=== PATIENT | male | born 1940 | race Caucasian/White ===

== ENCOUNTER 2021-12-17 03:34 | Inpatient (IN) | payer MEDICARE, OTHER ==
[~2021-12-17] VITALS: Ht 180.3 cm; Wt 104.7 kg
[~2021-12-17 03:34] MED LIST: ACET10DR2 OT; ASPI-482 PO; CYAN500T40 SL; DICL100G54 TP; DOCU-109 PO; DONE10TA61 PO; DULO60CA7 PO; FERR325T72 PO; FLUT15.845 NS; HYDR-2761 PO; INSU100I13 SQ; LOPE-101 PO; LORA0.5T96 PO; LORA10TA3 PO; MAGN24003 PO; MEMA10TA PO; METF-550 PO; METF-551 PO; MULT-671 PO; NORT75CA PO; ONDA4TAB10 SL; PECT2.8L3 MM; POTA8TAB46 PO; PRAV40TA2 PO; PREG50CA91 PO; PROP225C2 PO; SENN1TAB62 PO; TRAZ-118 PO
[2021-12-17 07:00] VITALS: BP 138/63
[2021-12-17] MEDS ORDERED: DULO40CA2 PO (07:47)
[2021-12-17] MEDS ORDERED: NORT25CA PO (07:56)
[2021-12-17] MEDS ORDERED: INSU100V8 SQ (07:56)
[2021-12-17] MEDS ORDERED: CYAN100031 PO (07:56)
[2021-12-17] MEDS ORDERED: PREG-9 PO (07:56)
[2021-12-17] MEDS ORDERED: INFLUENZA VAX SCREEN BY RX. MC PRN (08:00)
[2021-12-17] MEDS ORDERED: AMLO-186 PO (08:07)
[2021-12-17] MEDS ORDERED: TRAZ-118 PO (08:07)
[2021-12-17] MEDS ORDERED: POLY500P14 MC (08:07)
[2021-12-17] MEDS ORDERED: DIVA250T14 PO (08:07)
[2021-12-17] MEDS ORDERED: BACL10TA PO (08:07)
[2021-12-17] MEDS ORDERED: HYDR-2761 PO (08:07)
[2021-12-17] MEDS ORDERED: LORA0.5T96 PO (08:07)
[2021-12-17] MEDS ORDERED: NITR0.4T2 SL (08:07)
[2021-12-17] MEDS ORDERED: APIX5TAB PO (08:14)
[2021-12-17] MEDS ORDERED: METO25TA2 PO (08:14)
[2021-12-17] MEDS ORDERED: ACET325T21 PO (08:14)
[2021-12-17] MEDS ORDERED: HYDR-2868 PO (08:14)
[2021-12-17] MEDS ORDERED: POTA15TA26 PO (08:18)
[2021-12-17] MEDS ORDERED: ACETAMINOPHEN 325 MG TABLET. PO PRN ×2 (08:30→10:15)
[2021-12-17] MEDS ORDERED: IV DEXTROSE 5% 250 ML BAG. IV PRN (08:30)
[2021-12-17] MEDS ORDERED: DEXTROSE 50% 25 GM / 50ML DISP.SYRIN. IV PRN (08:30)
[2021-12-17] MEDS ORDERED: NITROGLYCERIN SUBLINGUAL 0.4 MG BOTTLE OF 25. SL PRN (10:15)
[2021-12-17] MEDS ORDERED: HYDROcodone/APAP 5/325MG 1 TAB TABLET PO PRN (10:15)
[2021-12-17] MEDS ORDERED: PIP/TAZO PER PHARMACY MC PRN (10:15)
[2021-12-17] MEDS ORDERED: POLYETHYLENE GLYCOL 3350 17 GM PACKET. PO PRN (10:15)
[2021-12-17] MEDS ORDERED: LOPERAMIDE 2 MG CAPSULE PO SCH (10:15)
[2021-12-17] MEDS ORDERED: ONDANSETRON ODT 4 MG TAB.RAPDIS. PO PRN (10:15)
[2021-12-17] MEDS ORDERED: DULO30CA44 PO (10:50)
[2021-12-17] MEDS ORDERED: POLY17PO29 PO (10:50)
[2021-12-17] MEDS ORDERED: METF10007 PO (10:50)
[2021-12-17] MEDS ORDERED: CHOL5000 PO (10:50)
[2021-12-17] MEDS ORDERED: DIVA-53 PO (10:50)
[2021-12-17] MEDS ORDERED: INSU100I17 SQ (10:50)
[2021-12-17] MEDS ORDERED: POTA10TA12 PO (10:50)
[2021-12-17 10:55] VITALS: BP 121/58
[2021-12-17] MEDS: SENNOSIDES/DOCUSATE 8.6/50MG TABLET. PO PRN (10:55)
[2021-12-17] MEDS: APIXABAN 5 MG TABLET. PO SCH ×2 (10:55→21:32)
[2021-12-17] MEDS: DOCUSATE SODIUM 100 MG CAPSULE. PO SCH ×2 (10:55→21:31)
--- NOTE | 2021-12-17 10:55 | HP ---
DATE OF SERVICE: 12/17/2021 ADMIT DATE: 12/17/2021 HISTORY OF PRESENT ILLNESS: The patient is an 81-year-old male patient, a resident at [facility] and [facility], who was brought to the Emergency Room of [facility] with mechanical fall. He apparently fell hitting his head and presented with a complaint of head, pelvic pain and low back pain. He did hit his head in the fall, but no loss of consciousness. Nurses were in the next room and heard him fall. He apparently was also running a temperature over the last couple of days. There is no history of travel or recent ill contact. He has been a resident at [facility] and [facility] since 05/03/2013. The patient was evaluated in the Emergency Room of [facility] and has had lab work and imaging studies. His lab work showed he has leukocytosis. His chemistry showed also that his CK was high at 1085. His first troponin was high at 476. His beta natriuretic peptide was 1714. His prothrombin time and INR slightly elevated, APTT normal at 31. D-dimer was high at 1.15. His urinalysis showed the urine was cloudy with a pH of 5.5, specific gravity 1.030. There is small amount of protein, negative for glucose, trace of ketones, large amount of blood, positive for nitrite with moderate amount of leukocyte esterase, 5-10 rbc's, too numerous to count wbc's and many bacteria. His toxic screen was negative and his influenza A and B as well as coronavirus by rapid testing was negative, has extensive imaging studies done at [facility] Emergency Room including a chest x-ray that showed no confluent infiltrates. No pneumothorax or effusion. The heart size is not enlarged. The right distal clavicle has been partially resected. There are atherosclerotic calcification of the aorta. CT scan of the head and cervical spine showed no intracranial hemorrhage or abnormal extraaxial fluid collection. CT scan of cervical spine showed that the alignment is normal. There is no apparent loss of vertebral body heights or prevertebral soft tissue swelling, no fracture line is seen and CT scan of the lumbar spine also showed the alignment is normal. There are no apparent loss of vertebral body heights or other evidence of fracture. CT scan of the pelvis shows no fracture or dislocation seen. There are no apparent destructive process. Mild arthritic changes are present in both hip joints. No soft tissue hematoma is seen. The patient was transferred to [facility] as he has elevated troponin of 475, elevated D-dimer, UTI and left basilar pneumonia as well as leukocytosis. PAST MEDICAL HISTORY: Significant for type 2 diabetes mellitus, hypertension, hyperlipidemia, severe chronic back pain and chronic opioid-induced constipation. PAST SURGICAL HISTORY: Significant for right distal clavicular resection. ALLERGIES: He has no known drug allergies. FAMILY HISTORY: Noncontributory. SOCIAL HISTORY: He has been a resident at [facility] and [facility]. He has 1 son who lives in [place]. He used to chew tobacco and drink alcohol and worked as a satellite tv installer. REVIEW OF SYSTEMS: As per history of present illness. MEDICATIONS: He is currently on the following medications: He is on loratadine 10 mg once a day, Aricept 10 mg daily. He is on baclofen 10 mg 3 times a day, apixaban 5 mg twice a day, propafenone 225 mg twice a day, hydralazine 25 mg every 8 hours, nitroglycerin 0.4 mg sublingually every 5 minutes x 3, metoprolol succinate 50 mg once a day, amlodipine 5 mg once a day, hydrocodone/APAP 5/325 one tablet every 4 hours, acetaminophen 650 mg every 4 hours, divalproex sodium 250 mg twice a day, pregabalin 75 mg twice a day, duloxetine 90 mg daily, nortriptyline 50 mg at bedtime, trazodone 75 mg at bedtime, lorazepam 0.5 mg at bedtime, Namenda 10 mg daily, potassium chloride 10 mEq once a day. He is also on glucose 37.5 grams p.o. daily p.r.n. for hypoglycemia. He is also on natural balance tears eyedrops 1 drop to both eyes 4 times a day, glycerin-propylene glycol lubricant eye drops 1 mL to both eyes at bedtime. He is on polyethylene glycol 17 grams daily, Senna-S 2 tablets in the morning, metformin 1000 mg twice a day. He is also on NovoLog insulin 5 units 3 times a day before meals and Lantus insulin 15 units at bedtime. He is on a Glucagon 1 mg intramuscular as needed for hypoglycemia, cyanocobalamin 1000 mcg tablet once a day, cholecalciferol, vitamin D3 50,000 units once a week, multivitamin with mineral 1 tablet once a day. PHYSICAL EXAMINATION: GENERAL: On arrival to the Emergency Room, the patient was slightly tachypneic, but there was no pallor, jaundice, cyanosis or thyromegaly. No jugular venous distention. No limb edema. VITAL SIGNS: His heart rate was 86, blood pressure is 152/66, temperature 103.2, respiratory rate was 24 and oxygen saturation was 91% on room air. HEAD, EYES, EARS, NOSE, AND THROAT: Normocephalic, atraumatic. NECK: Supple. HEART: Showed normal first and second heart sounds. No gallop, rub or murmur. CHEST: Clear to auscultation, no crepitation or rhonchi. ABDOMEN: Distended, soft, nontender. NEUROLOGIC: He was awake, alert, responding appropriately at times. All his cranial nerves intact. He moves extremities without difficulty, although he is mostly bedbound, wheelchair bound. LABORATORY DATA: His lab work showed a white cell count of 14,400, hemoglobin 12, hematocrit 36, MCV 87 and platelet count of 183,000 with normal manual differential. His chemistry showed a serum sodium 134, potassium 4.4, chloride 98, bicarbonate 26, anion gap of 10, BUN 22, creatinine 1.5. Estimated GFR was 45 mL per minute. His glucose was 225, calcium was 8.7, magnesium was 1.4. Total bilirubin, AST, ALT, alkaline phosphatase were normal. CK was high at 1083. Troponin I high sensitivity was high also at 476 and beta natriuretic peptide was 1700. Total protein was 6.9, albumin was 3.5. His prothrombin time and INR slightly elevated, APTT was normal and D-dimer was high at 1.15. Urinalysis showed the urine was teresa, cloudy with a pH of 5.5, specific gravity 1.030. There is a small amount of protein. The urine was negative for glucose, trace of ketones, large amount of blood, positive for nitrite and there is moderate amount of leukocyte esterase, 6-10 rbc's, too numerous to count wbc's and many bacteria. Toxic screen was negative and influenza A, B as well as COVID-19 by rapid testing was negative. ASSESSMENT AND PLAN: In summary, this is an 81-year-old male patient who was seen in the Emergency Room with a history of fall, extensive imaging showed no evidence of any fracture; however, he was found to have leukocytosis and possible urinary tract infection and perhaps left lower lobe pneumonia and the patient was treated with ciprofloxacin as well as ceftriaxone and was continued on his apixaban and was transferred to [facility]. I will reconcile all his medications. We will do two more sets of cardiac enzyme and continue with IV antibiotic. We will consult the Cardiology team. JN DR: Jessica TID: [id number]
[2021-12-17] MEDS: BACLOFEN 10 MG TABLET. PO SCH ×3 (10:56→21:27)
[2021-12-17] MEDS: PRENATAL MULTIVITAMIN TABLET. PO SCH (10:56)
[2021-12-17] MEDS: PREGABALIN 75 MG CAPSULE PO SCH ×2 (10:57→21:33)
[2021-12-17] MEDS ORDERED: DICLOFENAC SODIUM 1% TOPICAL GEL 100GM TUBE. TP SCH (11:00)
[2021-12-17] MEDS ORDERED: ASPIRIN ENTERIC COATED 81 MG TABLET.DR. PO SCH (11:00)
[2021-12-17] MEDS ORDERED: METOPROLOL SUCC 24HR ER 25 MG TAB.ER.24H. PO SCH (11:00)
[2021-12-17] MEDS ORDERED: DULoxetine HCL 30 MG CAPSULE.DR PO SCH (11:00)
[2021-12-17] MEDS ORDERED: FERROUS SULFATE 325 MG TABLET. PO SCH (11:00)
[2021-12-17] MEDS ORDERED: MEMANTINE 10 MG TABLET. PO SCH (11:00)
[2021-12-17] MEDS: MEMANTINE 10 MG TABLET. PO SCH (11:00)
[2021-12-17 11:01] LABS: BASO # 0.1 x10^3/uL (0.0-0.2); BASO % 0 % (0-3); CALCIUM 8.4 mg/dL (8.5-10.1); CREATININE 1.8 mg/dL (0.7-1.3); EOS % 0 % (0-3); GFR 36.5; HEMATOCRIT 35.9 % (39.0-53.0); HEMOGLOBIN 11.4 g/dL (13.0-17.5); LYMPH # 1.5 x10^3/uL (1.0-4.8); LYMPH % 10 % (24-48); MEAN CORPUSCULAR HEMOGLOBIN 27 pg (25-35); MEAN CORPUSCULAR HGB CONC 32 g/dL (31-37); MEAN CORPUSCULAR VOLUME 86 fL (79-100); MONO # 1.8 x10^3/uL (0.0-1.1); MONO % 12 % (0-9); NEUT # 11.1 x10^3/uL (1.8-7.7); NEUT % 77 % (31-73); PLATELET COUNT 171 x10^3/uL (140-400); POTASSIUM 4.5 mmol/L (3.5-5.1); RED CELL DISTRIBUTION WIDTH 13.9 % (11.5-14.5); WHITE BLOOD COUNT 14.4 x10^3/uL (4.0-11.0)
[2021-12-17 11:07] LABS: ALBUMIN 3.3 g/dL (3.4-5.0); ALBUMIN/GLOBULIN RATIO 0.9 (1.0-1.7); TOTAL BILIRUBIN 0.7 mg/dL (0.2-1.0); TOTAL PROTEIN 6.8 g/dL (6.4-8.2)
[2021-12-17 11:09] LABS: CHOLESTEROL/HDL RATIO 6.2
[2021-12-17] MEDS: METOPROLOL SUCC 24HR ER 50 MG TAB.ER.24H. PO SCH (11:29)
[2021-12-17] MEDS: DIVALPROEX SPRINKLES 125 MG CAPSULE. PO SCH ×2 (12:29→21:00)
[2021-12-17] MEDS: DULoxetine HCL 30 MG CAPSULE.DR PO SCH (12:29)
[2021-12-17] MEDS: FLUTICASONE 50MCG/NASAL SPRAY 16GM BOTTLE. NS SCH (12:29)
[2021-12-17] MEDS: PIPERACILLIN/TAZOBACTAM 3.375 GM in IV NORMAL SALINE 50ML 50 ML IV SCH ×3 (12:30→21:34)
[2021-12-17] MEDS: INSULIN LISPRO 300 UNITS/3 ML VIAL. SQ SCH ×2 (12:34→17:00)
[2021-12-17] MEDS: PROPAFENONE 150 MG TABLET. PO SCH ×2 (12:35→21:30)
[2021-12-17] MEDS: hydrALAZINE 25 MG TABLET PO SCH ×2 (14:00→21:00)
[2021-12-17 15:00] VITALS: BP 120/59
--- NOTE | 2021-12-17 16:12 | PDOC2 ---
CONSULT Date of Consult Date of Consult DATE: 12/17/21 TIME: 16:06 Reason for Consult Reason for Consult: Elevated troponin. Referring Physician Referring Physician: Dr. Ramsay Identification/Chief Complaint Chief Complaint Mechanical fall Source Source: Chart review, Patient History of Present Illness Reason for Visit: The patient is an 81-year-old long-term resident of a long term who had a unwitnessed mechanical fall at his long term. He reportedly had no loss of consciousness. He was transported to [facility] emergency room for evaluation. CT head scan showed no acute changes. A chest x-ray showed a left-sided pacemaker. Initial CK was elevated at 1085. BNP was mildly elevated at 1714. Troponins been 476 and 349. His EKG showed a sinus rhythm with minimal nonspecific ST-T wave changes. The patient is now more comfortable and resting in bed. He denies chest pain or shortness of breath. Past Medical History Cardiovascular: AFIB, CAD, HTN, Hyperlipidemia CENTRAL NERVOUS SYSTEM: Dementia GI: Constipation, GERD Psych: Anxiety, Depression Musculoskeletal: Osteoarthritis Renal/: Urinary Incontinence Endocrine: Diabetes Past Surgical History Past Surgical History: Pacemaker, Other (Right distal clavicular resection) Family History Family History: Hypertension, Other Social History Quit ALCOHOL: none Drugs: None Current Medications Current Medications Current Medications Info (FLU VACCINE SCREEN per RX) [phone] each 1X PRN MC SEE ADMIN INSTRUCT IONS; Start 12/17/21 at 08:00; Status UNV Insulin Human Lispro (HumaLOG) 0-7 UNITS TIDWMEALS SQ Last administered on 12/17/21at 12:34; Start 12/17/21 at 12:00 Dextrose (Dextrose 50%-Water Syringe) 12.5 gm PRN Q15MIN PRN IV SEE COMMENTS; Start 12/17/21 at 08:30 Dextrose (Iv Dextrose 5%) 250 ml PRN Q15MIN PRN IV SEE COMMENTS; Start 12/17/21 at 08:30 Acetaminophen (Tylenol) 650 mg PRN Q6HRS PRN PO MILD PAIN / TEMP > 100.3'F Last administered on 12/17/21at 10:58; Start 12/17/21 at 08:30 Acetaminophen (Tylenol) 325 mg PRN DAILY PRN PO pain or fever; Start 12/17/21 at 10:15; Status UNV Amlodipine Besylate (Norvasc) 5 mg DAILY PO Last administered on 12/17/21at 10:56; Start 12/17/21 at 11:00 Apixaban (Eliquis) 5 mg BID PO Last administered on 12/17/21at 10:55; Start 12/17/21 at 11:00 Aspirin (Ecotrin) 81 mg DAILY PO ; Start 12/17/21 at 11:00; Status Cancel Baclofen (Lioresal) 10 mg TID PO Last administered on 12/17/21at 12:29; Start 12/17/21 at 11:00 Diclofenac Sodium (Voltaren) 1 april Q6HRS TP ; Start 12/17/21 at 11:00; Status Cancel Divalproex Sodium (Depakote Er) 125 mg BID PO ; Start 12/17/21 at 21:00; Status Cancel Docusate Sodium (Colace) 100 mg BID PO Last administered on 12/17/21at 10:55; Start 12/17/21 at 11:00 Donepezil HCl (Aricept) 10 mg QHS PO ; Start 12/17/21 at 21:00 Ferrous Sulfate (Feosol) 325 mg TID PO ; Start 12/17/21 at 11:00; Status Cancel Hydralazine HCl (Apresoline) 25 mg TID PO ; Start 12/17/21 at 14:00 Acetaminophen/ Hydrocodone Bitart (Lortab 5/325) 1 tab PRN Q4HRS PRN PO PAIN Last administered on 12/17/21at 10:57; Start 12/17/21 at 10:15 Insulin Glargine (Lantus Syringe) 15 unit HS SQ ; Start 12/17/21 at 21:00 Loperamide HCl (Imodium) 2 mg Q4H PO ; Start 12/17/21 at 10:15; Status Cancel Lorazepam (Ativan) 0.5 mg HS PO ; Start 12/17/21 at 21:00 Memantine (Namenda) 10 mg BID PO ; Start 12/17/21 at 11:00; Stop 12/17/21 at 10:51; Status DC Metoprolol Succinate (Toprol Xl) 50 mg DAILY PO ; Start 12/17/21 at 11:00; Stop 12/17/21 at 11:18; Status DC Nitroglycerin (Nitrostat) 0.4 mg PRN Q5MIN PRN SL CHEST PAIN; Start 12/17/21 at 10:15 Nortriptyline HCl (Pamelor) 50 mg QHS PO ; Start 12/17/21 at 21:00 Ondansetron HCl (Zofran Odt) 4 mg Q4HRS PRN PO NAUSEA; Start 12/17/21 at 10:15 Pregabalin (Lyrica) 75 mg BID PO Last administered on 12/17/21at 10:57; Start 12/17/21 at 11:00 Senna/Docusate Sodium (Senna Plus) 1 tab BID PRN PO CONSTIPATION Last administered on 12/17/21at 10:55; Start 12/17/21 at 10:15 Trazodone HCl (Desyrel) 75 mg QHS PO ; Start 12/17/21 at 21:00 Cyanocobalamin (Vitamin B-12) 1,000 mcg DAILY PO ; Start 12/18/21 at 09:00 Duloxetine HCl (Cymbalta) 30 mg DAILY PO ; Start 12/17/21 at 11:00; Stop 12/17/21 at 10:57; Status DC Fluticasone Propionate (Flonase) 2 spray DAILY NS Last administered on 12/17/21at 12:29; Start 12/17/21 at 11:00 Metformin HCl (Glucophage) 1,000 mg BIDWMEALS PO ; Start 12/17/21 at 17:00 Multivit/ Folic Acid/Iron (Multivitamin ) 1 tab DAILY PO Last administered on 12/17/21at 10:56; Start 12/17/21 at 11:00 Polyethylene Glycol (miraLAX PACKET) 17 gm PRN DAILY PRN PO CONSTIPATION; Start 12/17/21 at 10:15 Potassium Chloride (Klor-Con) 20 meq DAILYWBKFT PO ; Start 12/18/21 at 08:00 Atorvastatin Calcium (Lipitor) 20 mg QHS PO ; Start 12/17/21 at 21:00 Propafenone HCl (Rythmol) 75 mg BID PO Last administered on 12/17/21at 12:35; Start 12/17/21 at 12:00 Piperacillin Sod/ Tazobactam Sod (Zosyn Per Pharmacy) 1 each PRN DAILY PRN MC SEE COMMENTS; Start 12/17/21 at 10:15 Memantine (Namenda) 10 mg DAILY PO Last administered on 12/17/21at 11:00; Start 12/17/21 at 11:00 Divalproex Sodium (Depakote Sprinkles) 125 mg BID PO Last administered on 12/17/21at 12:29; Start 12/17/21 at 11:00 Duloxetine HCl (Cymbalta) 90 mg DAILY PO Last administered on 12/17/21at 12:29; Start 12/17/21 at 12:00 Piperacillin Sod/ Tazobactam Sod 3.375 gm/Sodium Chloride 50 ml @ 100 mls/hr Q6HRS IV Last administered on 12/17/21at 12:30; Start 12/17/21 at 12:00 Metoprolol Succinate (Toprol Xl) 50 mg DAILY PO Last administered on 12/17/21at 11:29; Start 12/17/21 at 12:00 Active Scripts Active Reported Klor-Con 10 (Potassium Chloride) 10 Meq Tablet.er 10 Meq PO DAILY Novolog Flexpen (Insulin Aspart) 100 Unit/1 Ml Insuln.pen 8 Unit SQ TIDWMEALS Miralax (Polyethylene Glycol 3350) 17 Gm Powd.pack 1 Pkt PO DAILY Metformin Hcl 1,000 Mg Tablet 1,000 Mg PO BIDWMEALS Duloxetine Hcl 30 Mg Capsule.dr 90 Mg PO DAILY Divalproex Sodium 500 Mg Tablet.dr 250 Mg PO BID Vitamin D3 (Vitamin D) 125 Mcg Capsule 125 Mcg PO WEEKLY 5,000 UNITS = 125 MCG Hydralazine Hcl 25 Mg Tablet 1 Tab PO TID Acetaminophen 325 Mg Tablet 1 Tab PO PRN Q4HRS PRN 30 Days Eliquis (Apixaban) 5 Mg Tablet 5 Mg PO BID Toprol Xl (Metoprolol Succinate) 25 Mg Tab.er.24h 2 Tab PO DAILY 30 Days Nitrostat (Nitroglycerin) 0.4 Mg Tab.subl 0.4 Mg SL PRN Q5MIN PRN Amlodipine Besylate 5 Mg Tablet 5 Mg PO BID Baclofen 10 Mg Tablet 1 Tab PO TID Ativan (Lorazepam) 0.5 Mg Tablet 0.5 Mg PO HS Trazodone Hcl 50 Mg Tablet 1.5 Tab PO QHS Hydrocodone-Apap 5-325 (Hydrocodone Bit/Acetaminophen) 1 Tab Tablet 1 Tab PO PRN Q4-6HRS PRN Lyrica (Pregabalin) 75 Mg Capsule 1 Cap PO BID Lantus (Insulin Glargine,Hum.rec.anlog) 100 Unit/1 Ml Vial 20 Unit SQ HS B-12 (Cyanocobalamin (Vitamin B-12)) 1,000 Mcg Tablet.er 1 Tab PO DAILY 30 Days Nortriptyline Hcl 25 Mg Capsule 2 Cap PO QHS Senna Plus Tablet (Sennosides/Docusate Sodium) 1 Each Tablet 2 Each PO DAILY Rythmol Sr (Propafenone Hcl) 225 Mg Cap.er.12h 75 Mg PO BID Namenda (Memantine Hcl) 10 Mg Tablet 1 Tab PO DAILY Eqoig-Exagdhq-Qfiicrca Tablet (Multivit-Min/Iron Fum/Folic AC) 1 Each Tablet 1 Each PO DAILY Loratadine 10 Mg Tablet 1 Tab PO DAILY Fluticasone Propionate 15.8 Ml [place].susp 15.8 Ml NS DAILY Aricept (Donepezil Hcl) 10 Mg Tablet 1 Tab PO QHS Allergies Allergies: Coded Allergies: I S O L A T I O N *CONTACT* (Verified Allergy, Unknown, 11/15/16) mrsa No Known Medication Allergies (Verified Allergy, Unknown, 11/15/16) ROS General: YES: Fatigue Respiratory: YES: SOB with excertion Physical Exam Physical Exam Deferred secondary to awaiting Covid test results. Vitals VITALS Vital Signs Date Time Temp Pulse Resp B/P (MAP) Pulse Ox O2 Delivery O2 Flow Rate FiO2 12/17/21 15:00 99.2 63 18 120/59 (79) 97 Nasal Cannula 3.0 99.2 Labs Labs Laboratory Tests Test 12/17/21 07:52 12/17/21 10:36 12/17/21 11:38 Glucose (Fingerstick) 197 mg/dL (70-99) 201 mg/dL (70-99) White Blood Count 14.4 x10^3/uL (4.0-11.0) Red Blood Count 4.20 x10^6/uL (4.30-5.70) Hemoglobin 11.4 g/dL (13.0-17.5) Hematocrit 35.9 % (39.0-53.0) Mean Corpuscular Volume 86 fL (79-100) Mean Corpuscular Hemoglobin 27 pg (25-35) Mean Corpuscular Hemoglobin Concent 32 g/dL (31-37) Red Cell Distribution Width 13.9 % (11.5-14.5) Platelet Count 171 x10^3/uL (140-400) Neutrophils (%) (Auto) 77 % (31-73) Lymphocytes (%) (Auto) 10 % (24-48) Monocytes (%) (Auto) 12 % (0-9) Eosinophils (%) (Auto) 0 % (0-3) Basophils (%) (Auto) 0 % (0-3) Neutrophils # (Auto) 11.1 x10^3/uL (1.8-7.7) Lymphocytes # (Auto) 1.5 x10^3/uL (1.0-4.8) Monocytes # (Auto) 1.8 x10^3/uL (0.0-1.1) Eosinophils # (Auto) 0.0 x10^3/uL (0.0-0.7) Basophils # (Auto) 0.1 x10^3/uL (0.0-0.2) Sodium Level 138 mmol/L (136-145) Potassium Level 4.5 mmol/L (3.5-5.1) Chloride Level 99 mmol/L (98-107) Carbon Dioxide Level 28 mmol/L (21-32) Anion Gap 11 (6-14) Blood Urea Nitrogen 26 mg/dL (8-26) Creatinine 1.8 mg/dL (0.7-1.3) Estimated GFR (Cockcroft-Gault) 36.5 BUN/Creatinine Ratio 14 (6-20) Glucose Level 192 mg/dL (70-99) Calcium Level 8.4 mg/dL (8.5-10.1) Total Bilirubin 0.7 mg/dL (0.2-1.0) Aspartate Amino Transf (AST/SGOT) 31 U/L (15-37) Alanine Aminotransferase (ALT/SGPT) 22 U/L (16-63) Alkaline Phosphatase 49 U/L (46-116) Troponin I High Sensitivity 349 ng/L (4-75) Total Protein 6.8 g/dL (6.4-8.2) Albumin 3.3 g/dL (3.4-5.0) Albumin/Globulin Ratio 0.9 (1.0-1.7) Triglycerides Level 161 mg/dL (0-150) Cholesterol Level 186 mg/dL (0-200) LDL Cholesterol, Calculated 124 mg/dL (0-100) VLDL Cholesterol, Calculated 32 mg/dL (0-40) Non-HDL Cholesterol Calculated 156 mg/dL (0-129) HDL Cholesterol 30 mg/dL (40-60) Cholesterol/HDL Ratio 6.2 Laboratory Tests Test 12/17/21 07:52 12/17/21 10:36 12/17/21 11:38 Glucose (Fingerstick) 197 mg/dL (70-99) 201 mg/dL (70-99) White Blood Count 14.4 x10^3/uL (4.0-11.0) Red Blood Count 4.20 x10^6/uL (4.30-5.70) Hemoglobin 11.4 g/dL (13.0-17.5) Hematocrit 35.9 % (39.0-53.0) Mean Corpuscular Volume 86 fL (79-100) Mean Corpuscular Hemoglobin 27 pg (25-35) Mean Corpuscular Hemoglobin Concent 32 g/dL (31-37) Red Cell Distribution Width 13.9 % (11.5-14.5) Platelet Count 171 x10^3/uL (140-400) Neutrophils (%) (Auto) 77 % (31-73) Lymphocytes (%) (Auto) 10 % (24-48) Monocytes (%) (Auto) 12 % (0-9) Eosinophils (%) (Auto) 0 % (0-3) Basophils (%) (Auto) 0 % (0-3) Neutrophils # (Auto) 11.1 x10^3/uL (1.8-7.7) Lymphocytes # (Auto) 1.5 x10^3/uL (1.0-4.8) Monocytes # (Auto) 1.8 x10^3/uL (0.0-1.1) Eosinophils # (Auto) 0.0 x10^3/uL (0.0-0.7) Basophils # (Auto) 0.1 x10^3/uL (0.0-0.2) Sodium Level 138 mmol/L (136-145) Potassium Level 4.5 mmol/L (3.5-5.1) Chloride Level 99 mmol/L (98-107) Carbon Dioxide Level 28 mmol/L (21-32) Anion Gap 11 (6-14) Blood Urea Nitrogen 26 mg/dL (8-26) Creatinine 1.8 mg/dL (0.7-1.3) Estimated GFR (Cockcroft-Gault) 36.5 BUN/Creatinine Ratio 14 (6-20) Glucose Level 192 mg/dL (70-99) Calcium Level 8.4 mg/dL (8.5-10.1) Total Bilirubin 0.7 mg/dL (0.2-1.0) Aspartate Amino Transf (AST/SGOT) 31 U/L (15-37) Alanine Aminotransferase (ALT/SGPT) 22 U/L (16-63) Alkaline Phosphatase 49 U/L (46-116) Troponin I High Sensitivity 349 ng/L (4-75) Total Protein 6.8 g/dL (6.4-8.2) Albumin 3.3 g/dL (3.4-5.0) Albumin/Globulin Ratio 0.9 (1.0-1.7) Triglycerides Level 161 mg/dL (0-150) Cholesterol Level 186 mg/dL (0-200) LDL Cholesterol, Calculated 124 mg/dL (0-100) VLDL Cholesterol, Calculated 32 mg/dL (0-40) Non-HDL Cholesterol Calculated 156 mg/dL (0-129) HDL Cholesterol 30 mg/dL (40-60) Cholesterol/HDL Ratio 6.2 Images Images Chest x-ray and CT head scan as above with no acute changes. Assessment/Plan Assessment/Plan 1. Mechanical fall. Patient's work-up thus far has shown no acute changes on imaging. He is feeling better. No evidence of a significant arrhythmia. We will continue present treatments and monitor. 2. Elevated troponin at 476 and 349. No acute ischemic EKG changes. We will continue to monitor and complete rule out. We will check an echocardiogram tomorrow. 3. Pacemaker. Will attempt to find old records and interrogate. 4. Hypertension. Under reasonable control at this time and will continue to monitor. 5. History of hyperlipidemia. Will check lab. 6. Dementia. 7. Chronic back pain. 8. Diabetes mellitus. Continue present treatment as per the primary service. Thank you for allowing us to participate in the care of your pleasant patient. LIBERTAD RED MD 13, 2022 16:12
[2021-12-17] MEDS: metFORMIN 500 MG TABLET PO SCH (16:43)
[2021-12-17 19:00] VITALS: BP 107/44
[2021-12-17] MEDS ORDERED: DIVALPROEX EXTENDED RELEASE 250 MG TAB.ER.24H. PO SCH (21:00)
[2021-12-17] MEDS: IPRATRPIUM/ALBUTEROL 0.5/2.5MG 3 ML NEBU. NEB SCH (21:10)
[2021-12-17] MEDS: NORTRIPTYLINE 25 MG CAPSULE PO SCH (21:27)
[2021-12-17] MEDS: LORazepam 0.5 MG TABLET PO SCH (21:27)
[2021-12-17] MEDS: traZODone 50 MG TABLET. PO SCH (21:32)
[2021-12-17] MEDS: ATORVASTATIN CALCIUM 20 MG TABLET PO SCH (21:33)
[2021-12-17] MEDS: DONEPEZIL HCL 10 MG TABLET. PO SCH (21:33)
[2021-12-17 23:00] VITALS: BP 115/55
[2021-12-18] MEDS: INSULIN GLARGINE SYRINGE. SQ SCH ×2 (00:46→22:08)
[2021-12-18 03:00] VITALS: BP 114/58
[2021-12-18] MEDS: PIPERACILLIN/TAZOBACTAM 3.375 GM in IV NORMAL SALINE 50ML 50 ML IV SCH ×3 (05:57→22:19)
[2021-12-18 07:00] VITALS: BP 118/64
[2021-12-18] MEDS: metFORMIN 500 MG TABLET PO SCH ×2 (07:58→17:00)
[2021-12-18] MEDS: IPRATRPIUM/ALBUTEROL 0.5/2.5MG 3 ML NEBU. NEB SCH ×3 (08:00→16:24)
[2021-12-18] MEDS: INSULIN LISPRO 300 UNITS/3 ML VIAL. SQ SCH ×3 (08:00→17:28)
[2021-12-18 08:07] LABS: HEMATOCRIT 33.3 % (39.0-53.0); HEMOGLOBIN 10.8 g/dL (13.0-17.5); RED BLOOD COUNT 3.87 x10^6/uL (4.30-5.70); RED CELL DISTRIBUTION WIDTH 13.6 % (11.5-14.5); WHITE BLOOD COUNT 8.2 x10^3/uL (4.0-11.0)
[2021-12-18 08:31] LABS: ALBUMIN 2.8 g/dL (3.4-5.0); ALBUMIN/GLOBULIN RATIO 0.8 (1.0-1.7); CALCIUM 8.1 mg/dL (8.5-10.1); CREATININE 1.5 mg/dL (0.7-1.3); MAGNESIUM 1.8 mg/dL (1.8-2.4); TOTAL BILIRUBIN 0.4 mg/dL (0.2-1.0); TOTAL PROTEIN 6.2 g/dL (6.4-8.2)
[2021-12-18] MEDS: hydrALAZINE 25 MG TABLET PO SCH ×3 (09:00→22:02)
[2021-12-18] MEDS: DULoxetine HCL 30 MG CAPSULE.DR PO SCH (09:01)
[2021-12-18] MEDS: PROPAFENONE 150 MG TABLET. PO SCH ×2 (09:02→22:01)
[2021-12-18] MEDS: SENNOSIDES/DOCUSATE 8.6/50MG TABLET. PO PRN (09:02)
[2021-12-18] MEDS: CYANOCOBALAMIN (VITAMIN B-12) 1,000 MCG TABLET. PO SCH (09:02)
[2021-12-18] MEDS: METOPROLOL SUCC 24HR ER 50 MG TAB.ER.24H. PO SCH (09:03)
[2021-12-18] MEDS: APIXABAN 5 MG TABLET. PO SCH ×2 (09:03→22:00)
[2021-12-18] MEDS: PRENATAL MULTIVITAMIN TABLET. PO SCH (09:03)
[2021-12-18] MEDS: MEMANTINE 10 MG TABLET. PO SCH (09:03)
[2021-12-18] MEDS: DIVALPROEX SPRINKLES 125 MG CAPSULE. PO SCH ×2 (09:03→22:02)
[2021-12-18] MEDS: DOCUSATE SODIUM 100 MG CAPSULE. PO SCH ×2 (09:03→21:00)
[2021-12-18] MEDS: BACLOFEN 10 MG TABLET. PO SCH ×3 (09:03→21:59)
[2021-12-18] MEDS: PREGABALIN 75 MG CAPSULE PO SCH ×2 (09:04→22:02)
[2021-12-18] MEDS: POTASSIUM CHLORIDE 20 MEQ TABLET.ER. PO SCH (09:04)
[2021-12-18] MEDS: FLUTICASONE 50MCG/NASAL SPRAY 16GM BOTTLE. NS SCH (09:04)
[2021-12-18 11:00] VITALS: BP 119/54
--- NOTE | 2021-12-18 11:34 | PN ---
DATE: 12/18/2021 SUBJECTIVE: The patient is resting slightly propped up in bed, in no apparent respiratory distress. He is awake, alert. On questioning him, he denied any complaint, in particular, he denied any pain. Denied any chills, rigors or fever. His coronavirus by PCR was negative and his urine culture has grown Escherichia coli; however, the sensitivities still pending at the time of this dictation. He has 2 sets of cardiac enzyme. His first set of cardiac enzymes showed troponin to be 476 and his second troponin high sensitivity was down to 349. He was seen by the encephalographer who will schedule the echocardiogram that was not done yet. PHYSICAL EXAMINATION: GENERAL: When I saw him this morning, he looked well and was clearly in no apparent respiratory distress. He was pale, but no jaundice, cyanosis, no lymphadenopathy, no thyromegaly, no jugular venous distention, no lower limb edema. VITAL SIGNS: His heart rate this morning was 60, blood pressure was 118/64, temperature was 98.4, respiratory rate 20, and oxygen saturation was 98% ____ liters of oxygen. HEAD, EYES, EARS, NOSE, AND THROAT: Normocephalic and atraumatic. NECK: Supple. HEART: Showed normal first and second heart sounds. No gallop, rub or murmur. CHEST: Clear to auscultation, no crepitation or rhonchi. ABDOMEN: Distended, soft, nontender. NEUROLOGIC: He is definitely more awake, alert, responding appropriately. All cranial nerves intact. He moves upper extremities without difficulty. He is mostly bedbound. His intake and output incompletely recorded. LABORATORY DATA: As of this morning, his white cell count is down to 8200, hemoglobin 11, hematocrit 33, MCV 86 and platelet count of 159,000. His chemistry showed a serum sodium 139, potassium 4, chloride 102, bicarbonate 28, anion gap of 9, BUN 29, creatinine 1.5. Estimated GFR was 45 mL per minute. His glucose 96, calcium was 8.1, magnesium was 1.8. Total bilirubin, AST, ALT, alkaline phosphatase are all normal. His total protein was 6.2, albumin was 2.8. ASSESSMENT: 1. Mechanical fall with no evidence of any fracture or injury. 2. Urinary tract infection with growth of Escherichia coli. 3. Type 2 diabetes mellitus. 4. Hypertension, seems to be well controlled. 5. Hyperlipidemia. 6. Severe chronic back pain. 7. Chronic opioid-induced constipation. PLAN: To obviously continue with IV Zosyn. Continue with monitor his blood sugar and adjust insulin as needed. Continue with nebulized albuterol and Atrovent. Once we have the results of the sensitivity, we will switch him to oral antibiotic and he can probably be transferred back to [facility] and Re[facility] tomorrow. ANG DR: Jessica TID: [id number]
[2021-12-18 15:00] VITALS: BP 127/49
--- NOTE | 2021-12-18 16:18 | CARD ---
MR#: [id number] Date of Study: 12/18/2021 Ordering Physician: LIBERTAD RED, Referring Physician: LIBERTAD RED, Tech: Jakob Licona [facility] APPROVED REPORT EXAM: Two-dimensional and M-mode echocardiogram with Doppler and color Doppler. Other Information Quality : AverageHR: 60bpm Rhythm : NSR INDICATION Elevated Troponin Surgery/Intervention Pacemaker: RISK FACTORS Hypertension Hyperlipidemia 2D DIMENSIONS Left Atrium(2D)4.7 (1.6-4.0cm)IVSd1.2 (0.7-1.1cm) Aortic Root(2D)3.2 (2.0-3.7cm)LVDd4.9 (3.9-5.9cm) LVOT Diameter2.3 (1.8-2.4cm)PWd1.3 (0.7-1.1cm) LA Nxonwg44 (18-58mL)LVDs3.5 (2.5-4.0cm) FS (%) 62.2 %SV103.2 ml LVEF(%)90.7 (>50%) Aortic Valve AoV Peak Jose.134.4cm/sAoV VTI27.5cm AO Peak GR.7.2mmHgLVOT VTI 22.48cm AO Mean GR.4mmHg Mitral Valve MV E Srlswfhn67.4cm/sMV E Peak Gr.3mmHg MV DECEL [id number] A Pgeldojb51.2cm/s MV E Mean Gr.1mmHgE/A Ratio1.1 TDI Lateral E' P. V11.20cm/sMedial E' P. V8.50cm/s E/Lateral E'7.4E/Medial E'9.8 Pulmonary Valve PV Peak Usbhnkch78.9cm/s Tricuspid Valve TR P. Mtrlbnrs986pr/sTR Peak Gr.30mmHg Pulmonary Vein S1 Fuylacnt06.8cm/sS2 Kojfohoq67.93cm/s D2 Vebkcvvt27.9cm/s LEFT VENTRICLE The left ventricle is normal size. There is borderline to mild concentric left ventricular hypertroph y. The left ventricular systolic function is normal. The ejection fraction is 60%. There is normal LV segmental wall motion. No left ventricle thrombus noted on this study. There is no ventricular septa l defect visualized. There is no left ventricular aneurysm. There is no mass noted in the left ventri cesario. RIGHT VENTRICLE The right ventricle is normal size. There is normal right ventricular wall thickness. The right ventr icular systolic function is normal. Pacemaker lead noted in the RV. ATRIA The left atrium is mildly dilated. The right atrium size is normal. The interatrial septum is intact with no evidence for an atrial septal defect or patent foramen ovale as noted on 2-D or Doppler imagi ng. AORTIC VALVE The aortic valve is normal in structure and function. Doppler and Color Flow revealed no significant aortic regurgitation. There is no significant aortic valvular stenosis. There is no aortic valvular v egetation. MITRAL VALVE The mitral valve is normal in structure and function. There is no evidence of mitral valve prolapse. There is no mitral valve stenosis. Doppler and Color-flow revealed trace to mild mitral regurgitation . TRICUSPID VALVE The tricuspid valve is normal in structure and function. Doppler and Color Flow revealed mild tricusp id valve regurgitation. The PA pressure was estimated at 40 mmHg. There is no tricuspid valve prolaps e or vegetation. There is no tricuspid valve stenosis. PULMONIC VALVE The pulmonary valve is normal in structure and function. Doppler and Color Flow revealed no pulmonic valvular regurgitation. There is no pulmonic valvular stenosis. GREAT VESSELS The aortic root is normal in size. The ascending aorta is normal in size. The pulmonary artery is nor mal. The IVC is normal in size and collapses >50% with inspiration. PERICARDIAL EFFUSION There is no pleural effusion. There is no evidence of significant pericardial effusion. Critical Notification Critical Value: No <Conclusion> Technically difficult study. The left ventricular systolic function is normal. The ejection fraction is 60%. There is normal LV segmental wall motion. Pacer wire noted RA/RV. Trace to mild mitral regurgitation. Mild tricuspid valve regurgitation. The PA pressure was estimated at 40 mmHg. There is no evidence of significant pericardial effusion. Signed by : Alvin Gonzalez, Electronically Approved : 12/18/2021 16:18:35
[2021-12-18] MEDS ORDERED: SENNOSIDES/DOCUSATE 8.6/50MG TABLET. PO PRN (17:00)
--- NOTE | 2021-12-18 17:52 | PDOC ---
PROGRESS NOTES Date of Service DATE: 12/18/21 TIME: 17:50 Subjective Subjective Patient seen and examined Objective Objective Vital Signs Date Time Temp Pulse Resp B/P (MAP) Pulse Ox O2 Delivery O2 Flow Rate FiO2 12/18/21 16:25 92 Room Air 12/18/21 15:00 98.0 60 20 127/49 (75) 98.0 12/18/21 07:00 1.5 Intake and Output 12/18/21 07:00 Intake Total 980 ml Balance 980 ml Intake Oral 880 ml IV Total 100 ml # Voids 4 Physical Exam Abdomen: Normal bowel sounds Heart: Regular rate General: No acute distress Lungs: Clear to auscultation Assessment Assessment 1. Mechanical fall. Patient's work-up thus far has shown no acute changes on imaging. He is feeling better. No evidence of a significant arrhythmia. We will continue present treatments and monitor. 2. Elevated troponin at 476 and 349. No acute ischemic EKG changes. Echocardiogram shows normal LV systolic function with trace mitral gravitation and trace tricuspid regurgitation. 3. Pacemaker. Will attempt to find old records and interrogate. 4. Hypertension. Under reasonable control at this time and will continue to monitor. 5. History of hyperlipidemia. 6. Dementia. 7. Chronic back pain. 8. Diabetes mellitus. Continue present treatment as per the primary service. Comment Review of Relevant I have reviewed the following items hardik (where applicable) has been applied. Labs Laboratory Tests Test 12/17/21 07:52 12/17/21 10:36 12/17/21 11:38 12/17/21 16:34 Glucose (Fingerstick) 197 mg/dL (70-99) 201 mg/dL (70-99) 168 mg/dL (70-99) White Blood Count 14.4 x10^3/uL (4.0-11.0) Red Blood Count 4.20 x10^6/uL (4.30-5.70) Hemoglobin 11.4 g/dL (13.0-17.5) Hematocrit 35.9 % (39.0-53.0) Mean Corpuscular Volume 86 fL (79-100) Mean Corpuscular Hemoglobin 27 pg (25-35) Mean Corpuscular Hemoglobin Concent 32 g/dL (31-37) Red Cell Distribution Width 13.9 % (11.5-14.5) Platelet Count 171 x10^3/uL (140-400) Neutrophils (%) (Auto) 77 % (31-73) Lymphocytes (%) (Auto) 10 % (24-48) Monocytes (%) (Auto) 12 % (0-9) Eosinophils (%) (Auto) 0 % (0-3) Basophils (%) (Auto) 0 % (0-3) Neutrophils # (Auto) 11.1 x10^3/uL (1.8-7.7) Lymphocytes # (Auto) 1.5 x10^3/uL (1.0-4.8) Monocytes # (Auto) 1.8 x10^3/uL (0.0-1.1) Eosinophils # (Auto) 0.0 x10^3/uL (0.0-0.7) Basophils # (Auto) 0.1 x10^3/uL (0.0-0.2) Sodium Level 138 mmol/L (136-145) Potassium Level 4.5 mmol/L (3.5-5.1) Chloride Level 99 mmol/L (98-107) Carbon Dioxide Level 28 mmol/L (21-32) Anion Gap 11 (6-14) Blood Urea Nitrogen 26 mg/dL (8-26) Creatinine 1.8 mg/dL (0.7-1.3) Estimated GFR (Cockcroft-Gault) 36.5 BUN/Creatinine Ratio 14 (6-20) Glucose Level 192 mg/dL (70-99) Calcium Level 8.4 mg/dL (8.5-10.1) Total Bilirubin 0.7 mg/dL (0.2-1.0) Aspartate Amino Transf (AST/SGOT) 31 U/L (15-37) Alanine Aminotransferase (ALT/SGPT) 22 U/L (16-63) Alkaline Phosphatase 49 U/L (46-116) Troponin I High Sensitivity 349 ng/L (4-75) Total Protein 6.8 g/dL (6.4-8.2) Albumin 3.3 g/dL (3.4-5.0) Albumin/Globulin Ratio 0.9 (1.0-1.7) Triglycerides Level 161 mg/dL (0-150) Cholesterol Level 186 mg/dL (0-200) LDL Cholesterol, Calculated 124 mg/dL (0-100) VLDL Cholesterol, Calculated 32 mg/dL (0-40) Non-HDL Cholesterol Calculated 156 mg/dL (0-129) HDL Cholesterol 30 mg/dL (40-60) Cholesterol/HDL Ratio 6.2 Test 12/17/21 21:53 12/18/21 07:47 12/18/21 07:54 12/18/21 17:18 Glucose (Fingerstick) 164 mg/dL (70-99) 169 mg/dL (70-99) 237 mg/dL (70-99) White Blood Count 8.2 x10^3/uL (4.0-11.0) Red Blood Count 3.87 x10^6/uL (4.30-5.70) Hemoglobin 10.8 g/dL (13.0-17.5) Hematocrit 33.3 % (39.0-53.0) Mean Corpuscular Volume 86 fL (79-100) Mean Corpuscular Hemoglobin 28 pg (25-35) Mean Corpuscular Hemoglobin Concent 32 g/dL (31-37) Red Cell Distribution Width 13.6 % (11.5-14.5) Platelet Count 159 x10^3/uL (140-400) Sodium Level 139 mmol/L (136-145) Potassium Level 4.0 mmol/L (3.5-5.1) Chloride Level 102 mmol/L (98-107) Carbon Dioxide Level 28 mmol/L (21-32) Anion Gap 9 (6-14) Blood Urea Nitrogen 29 mg/dL (8-26) Creatinine 1.5 mg/dL (0.7-1.3) Estimated GFR (Cockcroft-Gault) 45.0 BUN/Creatinine Ratio 19 (6-20) Glucose Level 168 mg/dL (70-99) Calcium Level 8.1 mg/dL (8.5-10.1) Magnesium Level 1.8 mg/dL (1.8-2.4) Total Bilirubin 0.4 mg/dL (0.2-1.0) Aspartate Amino Transf (AST/SGOT) 28 U/L (15-37) Alanine Aminotransferase (ALT/SGPT) 17 U/L (16-63) Alkaline Phosphatase 45 U/L (46-116) Total Protein 6.2 g/dL (6.4-8.2) Albumin 2.8 g/dL (3.4-5.0) Albumin/Globulin Ratio 0.8 (1.0-1.7) Laboratory Tests Test 12/17/21 21:53 12/18/21 07:47 12/18/21 07:54 12/18/21 17:18 Glucose (Fingerstick) 164 mg/dL (70-99) 169 mg/dL (70-99) 237 mg/dL (70-99) White Blood Count 8.2 x10^3/uL (4.0-11.0) Red Blood Count 3.87 x10^6/uL (4.30-5.70) Hemoglobin 10.8 g/dL (13.0-17.5) Hematocrit 33.3 % (39.0-53.0) Mean Corpuscular Volume 86 fL (79-100) Mean Corpuscular Hemoglobin 28 pg (25-35) Mean Corpuscular Hemoglobin Concent 32 g/dL (31-37) Red Cell Distribution Width 13.6 % (11.5-14.5) Platelet Count 159 x10^3/uL (140-400) Sodium Level 139 mmol/L (136-145) Potassium Level 4.0 mmol/L (3.5-5.1) Chloride Level 102 mmol/L (98-107) Carbon Dioxide Level 28 mmol/L (21-32) Anion Gap 9 (6-14) Blood Urea Nitrogen 29 mg/dL (8-26) Creatinine 1.5 mg/dL (0.7-1.3) Estimated GFR (Cockcroft-Gault) 45.0 BUN/Creatinine Ratio 19 (6-20) Glucose Level 168 mg/dL (70-99) Calcium Level 8.1 mg/dL (8.5-10.1) Magnesium Level 1.8 mg/dL (1.8-2.4) Total Bilirubin 0.4 mg/dL (0.2-1.0) Aspartate Amino Transf (AST/SGOT) 28 U/L (15-37) Alanine Aminotransferase (ALT/SGPT) 17 U/L (16-63) Alkaline Phosphatase 45 U/L (46-116) Total Protein 6.2 g/dL (6.4-8.2) Albumin 2.8 g/dL (3.4-5.0) Albumin/Globulin Ratio 0.8 (1.0-1.7) Medications Current Medications Info (FLU VACCINE SCREEN per RX) 9,677.02 each 1X PRN MC SEE ADMIN INSTRUCTIONS; Start 12/17/21 at 08:00; Status UNV Insulin Human Lispro (HumaLOG) 0-7 UNITS TIDWMEALS SQ Last administered on 12/18/21at 17:28; Start 12/17/21 at 12:00 Dextrose (Dextrose 50%-Water Syringe) 12.5 gm PRN Q15MIN PRN IV SEE COMMENTS; Start 12/17/21 at 08:30 Dextrose (Iv Dextrose 5%) 250 ml PRN Q15MIN PRN IV SEE COMMENTS; Start 12/17/21 at 08:30 Acetaminophen (Tylenol) 650 mg PRN Q6HRS PRN PO MILD PAIN / TEMP > 100.3'F Last administered on 12/17/21at 10:58; Start 12/17/21 at 08:30 Acetaminophen (Tylenol) 325 mg PRN DAILY PRN PO pain or fever; Start 12/17/21 at 10:15; Status UNV Amlodipine Besylate (Norvasc) 5 mg DAILY PO Last administered on 12/17/21at 10:56; Start 12/17/21 at 11:00 Apixaban (Eliquis) 5 mg BID PO Last administered on 12/18/21at 09:03; Start 12/17/21 at 11:00 Aspirin (Ecotrin) 81 mg DAILY PO ; Start 12/17/21 at 11:00; Status Cancel Baclofen (Lioresal) 10 mg TID PO Last administered on 12/18/21at 09:03; Start 12/17/21 at 11:00 Diclofenac Sodium (Voltaren) 1 april Q6HRS TP ; Start 12/17/21 at 11:00; Status Cancel Divalproex Sodium (Depakote Er) 125 mg BID PO ; Start 12/17/21 at 21:00; Status Cancel Docusate Sodium (Colace) 100 mg BID PO Last administered on 12/18/21at 09:03; Start 12/17/21 at 11:00 Donepezil HCl (Aricept) 10 mg QHS PO Last administered on 12/17/21at 21:33; Start 12/17/21 at 21:00 Ferrous Sulfate (Feosol) 325 mg TID PO ; Start 12/17/21 at 11:00; Status Cancel Hydralazine HCl (Apresoline) 25 mg TID PO Last administered on 12/17/21at 21:00; Start 12/17/21 at 14:00 Acetaminophen/ Hydrocodone Bitart (Lortab 5/325) 1 tab PRN Q4HRS PRN PO PAIN Last administered on 12/17/21at 10:57; Start 12/17/21 at 10:15 Insulin Glargine (Lantus Syringe) 15 unit HS SQ Last administered on 12/18/21at 00:46; Start 12/17/21 at 21:00 Loperamide HCl (Imodium) 2 mg Q4H PO ; Start 12/17/21 at 10:15; Status Cancel Lorazepam (Ativan) 0.5 mg HS PO Last administered on 12/17/21at 21:27; Start 12/17/21 at 21:00 Memantine (Namenda) 10 mg BID PO ; Start 12/17/21 at 11:00; Stop 12/17/21 at 10:51; Status DC Metoprolol Succinate (Toprol Xl) 50 mg DAILY PO ; Start 12/17/21 at 11:00; Stop 12/17/21 at 11:18; Status DC Nitroglycerin (Nitrostat) 0.4 mg PRN Q5MIN PRN SL CHEST PAIN; Start 12/17/21 at 10:15 Nortriptyline HCl (Pamelor) 50 mg QHS PO Last administered on 12/17/21at 21:27; Start 12/17/21 at 21:00 Ondansetron HCl (Zofran Odt) 4 mg Q4HRS PRN PO NAUSEA; Start 12/17/21 at 10:15 Pregabalin (Lyrica) 75 mg BID PO Last administered on 12/18/21at 09:04; Start 12/17/21 at 11:00 Senna/Docusate Sodium (Senna Plus) 1 tab BID PRN PO CONSTIPATION Last administered on 12/18/21at 09:02; Start 12/17/21 at 10:15; Stop 12/18/21 at 16:49; Status DC Trazodone HCl (Desyrel) 75 mg QHS PO Last administered on 12/17/21at 21:32; Start 12/17/21 at 21:00 Cyanocobalamin (Vitamin B-12) 1,000 mcg DAILY PO Last administered on 12/18/21 09:02; Start 12/18/21 at 09:00 Duloxetine HCl (Cymbalta) 30 mg DAILY PO ; Start 12/17/21 at 11:00; Stop 12/17/21 at 10:57; Status DC Fluticasone Propionate (Flonase) 2 spray DAILY NS Last administered on 12/18/21at 09:04; Start 12/17/21 at 11:00 Metformin HCl (Glucophage) 1,000 mg BIDWMEALS PO ; Start 12/17/21 at 17:00 Multivit/ Folic Acid/Iron (Multivitamin ) 1 tab DAILY PO Last administered on 12/18/21at 09:03; Start 12/17/21 at 11:00 Polyethylene Glycol (miraLAX PACKET) 17 gm PRN DAILY PRN PO CONSTIPATION, 1ST CHOICE; Start 12/17/21 at 10:15 Potassium Chloride (Klor-Con) 20 meq DAILYWBKFT PO Last administered on 12/18/21at 09:04; Start 12/18/21 at 08:00 Atorvastatin Calcium (Lipitor) 20 mg QHS PO Last administered on 12/17/21at 21:33; Start 12/17/21 at 21:00 Propafenone HCl (Rythmol) 75 mg BID PO Last administered on 12/18/21 09:02; S tart 12/17/21 at 12:00 Piperacillin Sod/ Tazobactam Sod (Zosyn Per Pharmacy) 1 each PRN DAILY PRN MC SEE COMMENTS; Start 12/17/21 at 10:15 Memantine (Namenda) 10 mg DAILY PO Last administered on 12/18/21 09:03; Start 12/17/21 at 11:00 Divalproex Sodium (Depakote Sprinkles) 125 mg BID PO Last administered on 12/18/21 09:03; Start 12/17/21 at 11:00 Duloxetine HCl (Cymbalta) 90 mg DAILY PO Last administered on 12/18/21at 09:01; Start 12/17/21 at 12:00 Piperacillin Sod/ Tazobactam Sod 3.375 gm/Sodium Chloride 50 ml @ 100 mls/hr Q6HRS IV Last administered on 12/18/21at 12:01; Start 12/17/21 at 12:00 Metoprolol Succinate (Toprol Xl) 50 mg DAILY PO Last administered on 12/18/21at 09:03; Start 12/17/21 at 12:00 Albuterol/ Ipratropium (Duoneb) 3 ml RTQID NEB Last administered on 12/18/21at 16:24; Start 12/17/21 at 20:00 Lactobacillus Rhamnosus (Culturelle) 1 cap BID PO ; Start 12/18/21 at 21:00 Senna/Docusate Sodium (Senna Plus) 1 tab PRN BID PRN PO CONSTIPATION, 2ND CHOICE; Start 12/18/21 at 17:00 Active Scripts Active Reported Klor-Con 10 (Potassium Chloride) 10 Meq Tablet.er 10 Meq PO DAILY Novolog Flexpen (Insulin Aspart) 100 Unit/1 Ml Insuln.pen 8 Unit SQ TIDWMEALS Miralax (Polyethylene Glycol 3350) 17 Gm Powd.pack 1 Pkt PO DAILY Metformin Hcl 1,000 Mg Tablet 1,000 Mg PO BIDWMEALS Duloxetine Hcl 30 Mg Capsule.dr 90 Mg PO DAILY Divalproex Sodium 500 Mg Tablet.dr 250 Mg PO BID Vitamin D3 (Vitamin D) 125 Mcg Capsule 125 Mcg PO WEEKLY 5,000 UNITS = 125 MCG Hydralazine Hcl 25 Mg Tablet 1 Tab PO TID Acetaminophen 325 Mg Tablet 1 Tab PO PRN Q4HRS PRN 30 Days Eliquis (Apixaban) 5 Mg Tablet 5 Mg PO BID Toprol Xl (Metoprolol Succinate) 25 Mg Tab.er.24h 2 Tab PO DAILY 30 Days Nitrostat (Nitroglycerin) 0.4 Mg Tab.subl 0.4 Mg SL PRN Q5MIN PRN Amlodipine Besylate 5 Mg Tablet 5 Mg PO BID Baclofen 10 Mg Tablet 1 Tab PO TID Ativan (Lorazepam) 0.5 Mg Tablet 0.5 Mg PO HS Trazodone Hcl 50 Mg Tablet 1.5 Tab PO QHS Hydrocodone-Apap 5-325 (Hydrocodone Bit/Acetaminophen) 1 Tab Tablet 1 Tab PO PRN Q4-6HRS PRN Lyrica (Pregabalin) 75 Mg Capsule 1 Cap PO BID Lantus (Insulin Glargine,Hum.rec.anlog) 100 Unit/1 Ml Vial 20 Unit SQ HS B-12 (Cyanocobalamin (Vitamin B-12)) 1,000 Mcg Tablet.er 1 Tab PO DAILY 30 Days Nortriptyline Hcl 25 Mg Capsule 2 Cap PO QHS Senna Plus Tablet (Sennosides/Docusate Sodium) 1 Each Tablet 2 Each PO DAILY Rythmol Sr (Propafenone Hcl) 225 Mg Cap.er.12h 75 Mg PO BID Namenda (Memantine Hcl) 10 Mg Tablet 1 Tab PO DAILY Jpcdl-Nqqwqou-Bvbjyybj Tablet (Multivit-Min/Iron Fum/Folic AC) 1 Each Tablet 1 Each PO DAILY Loratadine 10 Mg Tablet 1 Tab PO DAILY Fluticasone Propionate 15.8 Ml Cerrillos.susp 15.8 Ml NS DAILY Aricept (Donepezil Hcl) 10 Mg Tablet 1 Tab PO QHS Vitals/I & O Vital Sign - Last 24 Hours 12/17/21 12/17/21 12/17/21 12/17/21 19:00 20:00 21:00 21:30 Temp 97.7 97.7 Pulse 63 65 62 Resp 20 B/P (MAP) 107/44 (65) 123/64 109/44 Pulse Ox 98 O2 Delivery Room Air Nasal Cannula O2 Flow Rate 6.0 12/17/21 12/18/21 12/18/21 12/18/21 23:00 03:00 07:00 08:00 Temp 98.8 98.4 98.4 98.8 98.4 98.4 Pulse 62 60 60 Resp 20 20 20 B/P (MAP) 115/55 (75) 114/58 (76) 118/64 (82) Pulse Ox 97 99 98 O2 Delivery Nasal Cannula Nasal Cannula Nasal Cannula Room Air O2 Flow Rate 3.0 3.0 1.5 12/18/21 12/18/21 12/18/21 12/18/21 09:00 09:00 09:02 09:03 Pulse 60 60 60 60 B/P (MAP) 118/64 118/64 118/64 118/64 12/18/21 12/18/21 12/18/21 12/18/21 11:00 11:44 14:00 15:00 Temp 98.6 98.0 98.6 98.0 Pulse 61 61 60 Resp 20 20 B/P (MAP) 119/54 (75) 119/54 127/49 (75) Pulse Ox 92 92 93 O2 Delivery Room Air Room Air Room Air 12/18/21 16:25 Pulse Ox 92 O2 Delivery Room Air Intake and Output 12/17/21 12/17/21 12/18/21 15:00 23:00 07:00 Intake Total 240 ml 540 ml 200 ml Balance 240 ml 540 ml 200 ml Justifications for Admission Other Justification LIBERTAD RED MD Dec 18, 2021 17:52
--- NOTE | 2021-12-18 17:55 | NUR ---
Patient was discharged and transported by [place] [facility] by wheelchair. IV and telemonitor discontinued by Khurram CASTELLANOS. All belongigns with patient. Addendum: 12/18/21 at 1928 by CIELO PEOPLES RN RN Wrong patient.
[2021-12-18 19:00] VITALS: BP 127/52
[2021-12-18] MEDS: traZODone 50 MG TABLET. PO SCH (21:59)
[2021-12-18] MEDS: LORazepam 0.5 MG TABLET PO SCH (22:00)
[2021-12-18] MEDS: ATORVASTATIN CALCIUM 20 MG TABLET PO SCH (22:00)
[2021-12-18] MEDS: DONEPEZIL HCL 10 MG TABLET. PO SCH (22:00)
[2021-12-18] MEDS: LACTOBACILLUS RHAMNOSUS GG 1 CAPSULE. PO SCH (22:00)
[2021-12-18] MEDS: NORTRIPTYLINE 25 MG CAPSULE PO SCH (22:03)
[2021-12-18 23:00] VITALS: BP 128/55
[2021-12-19] MEDS: PIPERACILLIN/TAZOBACTAM 3.375 GM in IV NORMAL SALINE 50ML 50 ML IV SCH ×5 (02:08→23:57)
[2021-12-19 03:25] VITALS: BP 133/52
[2021-12-19 03:39] LABS: HEMOGLOBIN 10.8 g/dL (13.0-17.5); RED BLOOD COUNT 3.84 x10^6/uL (4.30-5.70); RED CELL DISTRIBUTION WIDTH 13.8 % (11.5-14.5); WHITE BLOOD COUNT 5.3 x10^3/uL (4.0-11.0)
[2021-12-19 03:59] LABS: ALBUMIN 2.9 g/dL (3.4-5.0); ALBUMIN/GLOBULIN RATIO 0.7 (1.0-1.7); CALCIUM 8.7 mg/dL (8.5-10.1); CREATININE 1.4 mg/dL (0.7-1.3); GFR 48.8; POTASSIUM 3.9 mmol/L (3.5-5.1); TOTAL BILIRUBIN 0.4 mg/dL (0.2-1.0); TOTAL PROTEIN 7.1 g/dL (6.4-8.2)
[2021-12-19 07:00] VITALS: BP 139/59
[2021-12-19] MEDS: IPRATRPIUM/ALBUTEROL 0.5/2.5MG 3 ML NEBU. NEB SCH ×4 (08:00→20:00)
[2021-12-19] MEDS: DULoxetine HCL 30 MG CAPSULE.DR PO SCH (08:31)
[2021-12-19] MEDS: metFORMIN 500 MG TABLET PO SCH ×2 (08:32→17:11)
[2021-12-19] MEDS: DIVALPROEX SPRINKLES 125 MG CAPSULE. PO SCH ×2 (08:32→20:48)
[2021-12-19] MEDS: MEMANTINE 10 MG TABLET. PO SCH (08:32)
[2021-12-19] MEDS: LACTOBACILLUS RHAMNOSUS GG 1 CAPSULE. PO SCH ×2 (08:32→20:50)
[2021-12-19] MEDS: CYANOCOBALAMIN (VITAMIN B-12) 1,000 MCG TABLET. PO SCH (08:32)
[2021-12-19] MEDS: APIXABAN 5 MG TABLET. PO SCH ×2 (08:32→20:50)
[2021-12-19] MEDS: PRENATAL MULTIVITAMIN TABLET. PO SCH (08:32)
[2021-12-19] MEDS: POTASSIUM CHLORIDE 20 MEQ TABLET.ER. PO SCH (08:33)
[2021-12-19] MEDS: hydrALAZINE 25 MG TABLET PO SCH ×3 (08:33→20:52)
[2021-12-19] MEDS: PROPAFENONE 150 MG TABLET. PO SCH ×2 (08:33→20:50)
[2021-12-19] MEDS: PREGABALIN 75 MG CAPSULE PO SCH ×2 (08:34→20:52)
[2021-12-19] MEDS: METOPROLOL SUCC 24HR ER 50 MG TAB.ER.24H. PO SCH (08:34)
[2021-12-19] MEDS: DOCUSATE SODIUM 100 MG CAPSULE. PO SCH ×2 (08:34→20:53)
[2021-12-19] MEDS: FLUTICASONE 50MCG/NASAL SPRAY 16GM BOTTLE. NS SCH (08:38)
[2021-12-19] MEDS: BACLOFEN 10 MG TABLET. PO SCH ×3 (08:38→20:50)
[2021-12-19] MEDS: INSULIN LISPRO 300 UNITS/3 ML VIAL. SQ SCH ×3 (08:55→17:19)
[2021-12-19 11:00] VITALS: BP 119/53
--- NOTE | 2021-12-19 11:25 | PN ---
DATE: 12/19/2021 SUBJECTIVE: The patient is resting, slightly propped up in bed, in no apparent distress. He is confused. Unfortunately, he pulled his IV line and have nearly managed to get out of the bed; however, he continued to complain of severe pain in his right lower extremity, was nonspecific, but he points to all the right lower extremity from his hip to his right leg. He was seen by the cardiology team and apparently has had an echocardiogram that showed normal left ventricular systolic function with an ejection fraction of about 60%, normal left ventricular segmental wall motion. Pacer wires are seen, noted in the right atrium and right ventricle, trace to mild mitral regurgitation, mild tricuspid valve regurgitation. The pulmonary artery pressure was estimated at 40 mmHg. There is no evidence of significant pericardial effusion. His urine culture has grown more than 100,000 colony forming units per mL of Escherichia coli, sensitive to all antibiotics. PHYSICAL EXAMINATION: GENERAL: When I examined him this morning, he was pale, not jaundiced, cyanosed, no lymphadenopathy, no thyromegaly, no jugular venous distention. No limb edema. VITAL SIGNS: His heart rate was 60, blood pressure was 139/59, temperature was 98.4, respiratory rate was 18 and oxygen saturation was 94% on room air. HEAD, EYES, EARS, NOSE, AND THROAT: Normocephalic, atraumatic. NECK: Supple. HEART: Showed normal first and second heart sounds. No gallop, rub or murmur. CHEST: Clear to auscultation, no crepitation or rhonchi. ABDOMEN: Distended, soft, nontender. NEUROLOGIC: He was awake, alert, but somewhat confused. All his cranial nerves are intact. He moves extremities without difficulty. I am not really sure whether he is able to walk or not, we will contact the [facility]. His intake was 980, no output was recorded. LABORATORY DATA: His white cell count was 5300, hemoglobin 10.8, hematocrit 33, MCV 86 and platelet count of 193,000. Serum sodium was 141, potassium 3.9, chloride 105, bicarbonate 29, anion gap of 7, BUN 27, creatinine was 1.4. Estimated GFR was 48 mL per minute. His glucose was 164, calcium was 8.7. Total bilirubin, AST, ALT, alkaline phosphatase were normal. Total protein 7.1, albumin was 2.9. ASSESSMENT: 1. Mechanical fall with no evidence of any fracture or injury on x-rays done at [facility]; however, the patient continued to complain of pain mostly in his right hip area. 2. His urine culture has grown more than 100,000 colony forming units per mL of Escherichia coli, sensitive to all antibiotics. 3. Type 2 diabetes mellitus, seems to be reasonably controlled. 4. Hypertension, seems also to be well controlled. 5. Hyperlipidemia. 6. Severe chronic back pain. 7. Chronic opioid-induced constipation. PLAN: My plan is to continue with IV antibiotic. Continue to monitor his blood sugar and adjust insulin as needed. I will order bone scan to make sure there is no fracture and I will also consult physical and occupational therapy and hopefully discharge him back tomorrow, if there is no fracture, to [facility]. DARIEL/VON DR: Jessica TID: [id number]
--- NOTE | 2021-12-19 11:26 | PDOC ---
CARDIO Progress Notes Date and Time Date of Service 12/19/2021 Time of Evaluation 1110 Subjective Subjective: No Chest Pain, No shortness of breath, No Palpitations Vitals Vitals Vital Signs Date Time Temp Pulse Resp B/P (MAP) Pulse Ox O2 Delivery O2 Flow Rate FiO2 12/19/21 08:34 60 139/59 12/19/21 08:00 Room Air 12/19/21 07:00 98.4 18 94 98.4 12/18/21 07:00 1.5 Weight Weight [ ] Input and Output Intake and Output Intake and Output 12/19/21 07:00 Intake Total 1378 ml Balance 1378 ml Blood Product IV Normal Saline Flush 1378 ml # Voids 3 Laboratory Labs Laboratory Tests Test 12/18/21 17:18 12/18/21 20:33 12/19/21 02:55 12/19/21 07:57 Glucose (Fingerstick) 237 mg/dL (70-99) 153 mg/dL (70-99) 155 mg/dL (70-99) White Blood Count 5.3 x10^3/uL (4.0-11.0) Red Blood Count 3.84 x10^6/uL (4.30-5.70) Hemoglobin 10.8 g/dL (13.0-17.5) Hematocrit 33.0 % (39.0-53.0) Mean Corpuscular Volume 86 fL (79-100) Mean Corpuscular Hemoglobin 28 pg (25-35) Mean Corpuscular Hemoglobin Concent 33 g/dL (31-37) Red Cell Distribution Width 13.8 % (11.5-14.5) Platelet Count 193 x10^3/uL (140-400) Sodium Level 141 mmol/L (136-145) Potassium Level 3.9 mmol/L (3.5-5.1) Chloride Level 105 mmol/L (98-107) Carbon Dioxide Level 29 mmol/L (21-32) Anion Gap 7 (6-14) Blood Urea Nitrogen 27 mg/dL (8-26) Creatinine 1.4 mg/dL (0.7-1.3) Estimated GFR (Cockcroft-Gault) 48.8 BUN/Creatinine Ratio 19 (6-20) Glucose Level 164 mg/dL (70-99) Calcium Level 8.7 mg/dL (8.5-10.1) Total Bilirubin 0.4 mg/dL (0.2-1.0) Aspartate Amino Transf (AST/SGOT) 51 U/L (15-37) Alanine Aminotransferase (ALT/SGPT) 39 U/L (16-63) Alkaline Phosphatase 47 U/L (46-116) Total Protein 7.1 g/dL (6.4-8.2) Albumin 2.9 g/dL (3.4-5.0) Albumin/Globulin Ratio 0.7 (1.0-1.7) Physical Exam HEENT: Neck Supple W Full Motion Chest: Symmetric LUNGS: Other (diminished bases) Heart: S1S2, RRR (SR) Abdomen: Soft N/T Extremities: No Calf Tenderness Neurology: alert, follow commands, confused Assessment Assessment 1. Nontraumatic Mechanical fall: no arrhythmias so far 2. Mild troponin elevation: Suspect type 2, likely from fall. EF and WM per TTE 3. 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 HTN: controlled 5. HLP 6. Dementia: pleasantly confused 7. Chronic back pain. 8. DM2 9. SALOMÓN 10. Rhabdomyolysis Recommendations 1. Will interrogate pacer once device type is noted, Discussed with RN 2. secondary prevention measures 3. Oupt ischemic workup if none recent Justicifation of Admission Dx: Justifications for Admission: Justification of Admission Dx: Yes YMAILA WILSON APRN Dec 19, 2021 11:26
[2021-12-19 15:00] VITALS: BP 145/61
--- NOTE | 2021-12-19 15:53 | NUR ---
Called pt's Neeraj CHEUNG about the patient's pacemaker. This nurse was told that the pacemaker was placed 5 years ago and he's not aware of the PM brand or where it was done. He stated that he's going to call back once he gets the information.
[2021-12-19 19:00] VITALS: BP 133/65
[2021-12-19] MEDS: LORazepam 0.5 MG TABLET PO SCH (20:48)
[2021-12-19] MEDS: NORTRIPTYLINE 25 MG CAPSULE PO SCH (20:49)
[2021-12-19] MEDS: ATORVASTATIN CALCIUM 20 MG TABLET PO SCH (20:50)
[2021-12-19] MEDS: DONEPEZIL HCL 10 MG TABLET. PO SCH (20:50)
[2021-12-19] MEDS: traZODone 50 MG TABLET. PO SCH (20:53)
[2021-12-19] MEDS: INSULIN GLARGINE SYRINGE. SQ SCH (21:06)
[2021-12-19 23:00] VITALS: BP 114/45
[2021-12-20 02:46] VITALS: BP 147/64
[2021-12-20] MEDS: PIPERACILLIN/TAZOBACTAM 3.375 GM in IV NORMAL SALINE 50ML 50 ML IV SCH ×4 (06:15→23:57)
[2021-12-20 07:00] VITALS: BP 154/68
[2021-12-20] MEDS: IPRATRPIUM/ALBUTEROL 0.5/2.5MG 3 ML NEBU. NEB SCH ×4 (07:38→21:10)
[2021-12-20 07:43] LABS: CALCIUM 8.9 mg/dL (8.5-10.1); CREATININE 1.2 mg/dL (0.7-1.3); GFR 58.3; POTASSIUM 3.9 mmol/L (3.5-5.1)
[2021-12-20] MEDS: metFORMIN 500 MG TABLET PO SCH ×2 (08:00→17:00)
[2021-12-20] MEDS: INSULIN LISPRO 300 UNITS/3 ML VIAL. SQ SCH ×3 (09:53→17:33)
[2021-12-20] MEDS: POTASSIUM CHLORIDE 20 MEQ TABLET.ER. PO SCH (09:53)
[2021-12-20] MEDS: FLUTICASONE 50MCG/NASAL SPRAY 16GM BOTTLE. NS SCH (09:54)
[2021-12-20] MEDS: LACTOBACILLUS RHAMNOSUS GG 1 CAPSULE. PO SCH ×2 (09:54→21:34)
[2021-12-20] MEDS: DOCUSATE SODIUM 100 MG CAPSULE. PO SCH ×2 (09:54→21:00)
[2021-12-20] MEDS: hydrALAZINE 25 MG TABLET PO SCH ×3 (09:54→21:41)
[2021-12-20] MEDS: BACLOFEN 10 MG TABLET. PO SCH ×3 (09:55→21:41)
[2021-12-20] MEDS: APIXABAN 5 MG TABLET. PO SCH ×2 (09:55→21:41)
[2021-12-20] MEDS: PRENATAL MULTIVITAMIN TABLET. PO SCH (09:55)
[2021-12-20] MEDS: DIVALPROEX SPRINKLES 125 MG CAPSULE. PO SCH ×2 (09:55→21:39)
[2021-12-20] MEDS: DULoxetine HCL 30 MG CAPSULE.DR PO SCH (09:55)
[2021-12-20] MEDS: MEMANTINE 10 MG TABLET. PO SCH (09:55)
[2021-12-20] MEDS: PREGABALIN 75 MG CAPSULE PO SCH ×2 (09:55→21:39)
[2021-12-20] MEDS: PROPAFENONE 150 MG TABLET. PO SCH ×2 (09:56→21:39)
[2021-12-20] MEDS: CYANOCOBALAMIN (VITAMIN B-12) 1,000 MCG TABLET. PO SCH (09:56)
[2021-12-20] MEDS: METOPROLOL SUCC 24HR ER 50 MG TAB.ER.24H. PO SCH (09:56)
[2021-12-20 11:00] VITALS: BP 101/56
--- NOTE | 2021-12-20 11:37 | PN ---
DATE: 12/20/2021 SUBJECTIVE: The patient is resting, slightly propped up in bed, in no apparent respiratory distress. He is awake, alert. On questioning, he continued to complain of pain in his right hip. He denied any chest pain or shortness of breath. Denied any palpitation. PHYSICAL EXAMINATION: GENERAL: When I examined him, he looked pale, not jaundiced, cyanosed or thyromegaly. No jugular venous distention. No lower limb edema. VITAL SIGNS: His heart rate was 60, blood pressure was 154/68, temperature 98, respiratory rate was 16 and oxygen saturation was 95% on room air. HEAD, EYES, EARS, NOSE, AND THROAT: Normocephalic, atraumatic. NECK: Supple. HEART: Showed normal first and second heart sounds. No gallop, rub or murmur. CHEST: Shows central trachea, equal bilateral chest expansion, air entry, vesicular breath sounds. No crepitation or rhonchi. ABDOMEN: Distended, soft, nontender. NEUROLOGIC: He was awake, alert. All his cranial nerves intact. He moves upper extremities without difficulty. He continued to complain of pain on passive and active movement of his right hip joint. His intake was 1378. No output was recorded. LABORATORY DATA: His lab work this morning showed a white cell count 5300, hemoglobin 11, hematocrit 33, MCV 86, platelet count of 193,000. His chemistry showed a serum sodium 146, potassium 3.9, chloride 108, bicarbonate 28, anion gap of 10, BUN 23, creatinine 1.2, estimated GFR was 58 and blood sugar was 225 and calcium was 8.9. ASSESSMENT: 1. Mechanical fall with no evidence of any fracture or injury. An x-ray was done at [facility]; however, the patient continued to complain of pain, mostly in the right hip area. He is scheduled for a bone scan today. 2. His urine culture has grown more than 100,000 colony forming units per mL of Escherichia coli, sensitive to all antibiotics. He continues to be on Zosyn. 3. Type 2 diabetes mellitus, seems to be reasonably controlled. 4. Hypertension, seems to be also well controlled. 5. Hyperlipidemia. 6. Severe chronic back pain. 7. Chronic opioid-induced constipation. PLAN: To continue with IV antibiotic. Continue to monitor blood sugar and adjust insulin as needed. Once we have the results of the bone scan and there is no fracture evident, the patient will be discharged back to [facility]. ZAC DR: Jessica TID: [id number]
[2021-12-20] MEDS: ANTI-COAG MONITOR BY PHARMACY. MC PRN (12:00)
--- NOTE | 2021-12-20 12:55 | PDOC ---
YAMILA WILSON AEROSPACE PROJECT MANAGER 12/20/21 1255: CARDIO Progress Notes Date and Time Date of Service 12/20/2021 Time of Evaluation 1250 Subjective Subjective: No Chest Pain, No shortness of breath, No Palpitations Vitals Vitals Vital Signs Date Time Temp Pulse Resp B/P (MAP) Pulse Ox O2 Delivery O2 Flow Rate FiO2 12/20/21 11:19 96 Room Air 12/20/21 09:56 60 154/68 12/20/21 07:00 98.0 16 98.0 Weight Weight [ ] Input and Output Intake and Output Intake and Output 12/20/21 07:00 Intake Total 1350 ml Balance 1350 ml Intake Oral 1350 ml # Voids 7 Laboratory Labs Laboratory Tests Test 12/19/21 17:12 12/19/21 20:45 12/20/21 07:00 12/20/21 07:30 Glucose (Fingerstick) 239 mg/dL (70-99) 208 mg/dL (70-99) 219 mg/dL (70-99) Sodium Level 146 mmol/L (136-145) Potassium Level 3.9 mmol/L (3.5-5.1) Chloride Level 108 mmol/L (98-107) Carbon Dioxide Level 28 mmol/L (21-32) Anion Gap 10 (6-14) Blood Urea Nitrogen 23 mg/dL (8-26) Creatinine 1.2 mg/dL (0.7-1.3) Estimated GFR (Cockcroft-Gault) 58.3 Glucose Level 225 mg/dL (70-99) Calcium Level 8.9 mg/dL (8.5-10.1) Test 12/20/21 10:55 Glucose (Fingerstick) 254 mg/dL (70-99) Physical Exam HEENT: Neck Supple W Full Motion Chest: Symmetric LUNGS: Other (diminished bases) Heart: S1S2, RRR (SR) Abdomen: Soft N/T Extremities: No Calf Tenderness Neurology: alert, follow commands, confused Assessment Assessment 1. Nontraumatic Mechanical fall: no significant arrhythmias so far 2. Mild troponin elevation: Suspect type 2, likely from fall. EF and WM per TTE 3. 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 HTN: controlled 5. HLP 6. Dementia: pleasantly confused 7. Chronic back pain. 8. DM2 9. SALOMÓN: resolved after IVF 10. Rhabdomyolysis Recommendations 1. Will interrogate pacer once device type is noted, Discussed with RN 2. secondary prevention measures 3. Oupt ischemic workup if none recent Justicifation of Admission Dx: Justifications for Admission: Justification of Admission Dx: Yes LIBERTAD RED MD 12/20/21 1634: CARDIO Progress Notes Assessment Assessment Patient seen and examined I agree with our nurse practitioners assessment and plan. Nontraumatic Mechanical fall: no significant arrhythmias Mild troponin elevation: Suspect type 2, likely from fall. 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 Device interrogation pending. HTN: controlled HLP Dementia: pleasantly confused Chronic back pain. DM2 SALOMÓN: resolved after IVF Rhabdomyolysis YAMILA WILSON APRN Dec 20, 2021 12:55 LIBERTAD RED MD Dec 20, 2021 16:34
--- NOTE | 2021-12-20 14:15 | RAD ---
EXAM: Nuclear bone scan. HISTORY: Fall. Pain. TECHNIQUE: Following the intravenous injection of 27 mCi of Tc 99m labeled methylene diphosphonate (M DP), whole body imaging was performed. COMPARISON: CT dated 12/16/2021. FINDINGS: There is increased radiotracer activity within the shoulders, elbows, wrists, hands, knees, ankles and feet, the distribution of which favors a degenerative etiology. There is mild asymmetric radiotracer activity overlying the right sacroiliac joint which is likely due to slight oblique patie nt positioning. There is also a focus of relative increased radiotracer activity at the right T7 cost overtebral junction, not clearly within limits to suggest fracture. This is likely degenerative. Ther e is radiotracer within the renal collecting system and contamination of radiotracer overlying the pe rineum. 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 Correlate with endograft if there is continuing concern. There is no convincing sc intigraphic finding to suggest acute fracture. Electronically signed by: Quyen Poole MD (12/20/2021 2:13 PM) [id number]
[2021-12-20 15:00] VITALS: BP 143/56
--- NOTE | 2021-12-20 15:16 | NUR ---
AM meds were given this morning, scanned, and saved, screen had disappeared. Then reappearing hours later, showing not saved.
[2021-12-20 19:00] VITALS: BP 148/107
[2021-12-20] MEDS: LORazepam 0.5 MG TABLET PO SCH (21:34)
[2021-12-20] MEDS: NORTRIPTYLINE 25 MG CAPSULE PO SCH (21:34)
[2021-12-20] MEDS: DONEPEZIL HCL 10 MG TABLET. PO SCH (21:40)
[2021-12-20] MEDS: traZODone 50 MG TABLET. PO SCH (21:40)
[2021-12-20] MEDS: ATORVASTATIN CALCIUM 20 MG TABLET PO SCH (21:41)
[2021-12-20] MEDS: INSULIN GLARGINE SYRINGE. SQ SCH (21:52)
[2021-12-20 23:00] VITALS: BP 138/54
[2021-12-21 03:00] VITALS: BP 137/74
[2021-12-21 05:30] LABS: CALCIUM 9.2 mg/dL (8.5-10.1); CREATININE 1.1 mg/dL (0.7-1.3); GFR 64.4; POTASSIUM 3.9 mmol/L (3.5-5.1)
[2021-12-21] MEDS: PIPERACILLIN/TAZOBACTAM 3.375 GM in IV NORMAL SALINE 50ML 50 ML IV SCH ×3 (05:37→12:17)
[2021-12-21 07:00] VITALS: BP 174/72
[2021-12-21] MEDS: IPRATRPIUM/ALBUTEROL 0.5/2.5MG 3 ML NEBU. NEB SCH ×2 (07:36→12:05)
[2021-12-21] MEDS: DULoxetine HCL 30 MG CAPSULE.DR PO SCH (08:47)
[2021-12-21] MEDS: DOCUSATE SODIUM 100 MG CAPSULE. PO SCH (08:48)
[2021-12-21] MEDS: PROPAFENONE 150 MG TABLET. PO SCH (08:48)
[2021-12-21] MEDS: metFORMIN 500 MG TABLET PO SCH (08:48)
[2021-12-21] MEDS: LACTOBACILLUS RHAMNOSUS GG 1 CAPSULE. PO SCH (08:48)
[2021-12-21] MEDS: METOPROLOL SUCC 24HR ER 50 MG TAB.ER.24H. PO SCH (08:49)
[2021-12-21] MEDS: CYANOCOBALAMIN (VITAMIN B-12) 1,000 MCG TABLET. PO SCH (08:49)
[2021-12-21] MEDS: APIXABAN 5 MG TABLET. PO SCH (08:49)
[2021-12-21] MEDS: BACLOFEN 10 MG TABLET. PO SCH ×2 (08:49→14:00)
[2021-12-21] MEDS: MEMANTINE 10 MG TABLET. PO SCH (08:49)
[2021-12-21] MEDS: PREGABALIN 75 MG CAPSULE PO SCH (08:49)
[2021-12-21] MEDS: DIVALPROEX SPRINKLES 125 MG CAPSULE. PO SCH (08:49)
[2021-12-21] MEDS: PRENATAL MULTIVITAMIN TABLET. PO SCH (08:50)
[2021-12-21] MEDS: hydrALAZINE 25 MG TABLET PO SCH ×2 (08:50→14:00)
[2021-12-21] MEDS: POTASSIUM CHLORIDE 20 MEQ TABLET.ER. PO SCH (08:51)
[2021-12-21] MEDS: FLUTICASONE 50MCG/NASAL SPRAY 16GM BOTTLE. NS SCH (08:56)
[2021-12-21] MEDS: INSULIN LISPRO 300 UNITS/3 ML VIAL. SQ SCH ×2 (08:57→12:18)
--- NOTE | 2021-12-21 09:13 | PDOC ---
YAMILA WILSON SCHOOL HEALTH AIDE 12/21/21 0913: CARDIO Progress Notes Date and Time Date of Service 12/21/2021 Time of Evaluation 1000 Subjective Subjective: No Chest Pain, No shortness of breath, No Palpitations Vitals Vitals Vital Signs Date Time Temp Pulse Resp B/P (MAP) Pulse Ox O2 Delivery O2 Flow Rate FiO2 12/21/21 08:50 60 174/72 12/21/21 07:36 96 Room Air 12/21/21 07:00 97.4 16 97.4 Weight Weight [ ] Input and Output Intake and Output Intake and Output 12/21/21 07:00 Intake Total 960 ml Balance 960 ml Intake Oral 960 ml # Voids 3 # Bowel Movements 2 Laboratory Labs Laboratory Tests Test 12/20/21 10:55 12/20/21 16:26 12/20/21 21:30 12/21/21 03:45 Glucose (Fingerstick) 254 mg/dL (70-99) 169 mg/dL (70-99) 187 mg/dL (70-99) Sodium Level 145 mmol/L (136-145) Potassium Level 3.9 mmol/L (3.5-5.1) Chloride Level 108 mmol/L (98-107) Carbon Dioxide Level 29 mmol/L (21-32) Anion Gap 8 (6-14) Blood Urea Nitrogen 21 mg/dL (8-26) Creatinine 1.1 mg/dL (0.7-1.3) Estimated GFR (Cockcroft-Gault) 64.4 Glucose Level 179 mg/dL (70-99) Calcium Level 9.2 mg/dL (8.5-10.1) Test 12/21/21 07:18 Glucose (Fingerstick) 201 mg/dL (70-99) Physical Exam HEENT: Neck Supple W Full Motion Chest: Symmetric LUNGS: Other (diminished bases) Heart: S1S2, RRR (SR) Abdomen: Soft N/T Extremities: No Calf Tenderness Neurology: alert, follow commands, confused Assessment Assessment 1. Nontraumatic Mechanical fall: no significant arrhythmias so far 2. Mild troponin elevation: Suspect type 2, likely from fall. EF and WM per TTE 3. PPM in situ: SR/SB, [facility] 4. HTN: controlled 5. HLP 6. Dementia: pleasantly confused 7. Chronic back pain. 8. DM2 9. SALOMÓN: resolved after IVF 10. Rhabdomyolysis Recommendations 1. Interrogate device 2. secondary prevention measures 3. Oupt ischemic workup if none recent, He follow with Dr. Wright at [facility] cardiology Justicifation of Admission Dx: Justifications for Admission: Justification of Admission Dx: Yes LIBERTAD RED MD 12/21/21 1740: CARDIO Progress Notes Assessment Assessment Patient seen and examined He appears more comfortable today. I agree with our nurse practitioners assessment and plan. Nontraumatic Mechanical fall: no significant arrhythmias so far Mild troponin elevation: Suspect type 2, likely from fall. EF and WM per TTE. The patient follows at . PPM in situ: SR/SB, [facility] HTN: controlled HLP Dementia: pleasantly confused DM2 SALOMÓN: resolved after IVF YAMILA WISLON APRN Dec 21, 2021 09:13 LIBERTAD RED MD Dec 21, 2021 17:40
[2021-12-21] MEDS ORDERED: CEFD300C PO (09:46)
--- NOTE | 2021-12-21 09:49 | SNU/HH DC ---
DISCHARGE ORDERS DISCHARGE INFORMATION: DISCHARGE DATE: Dec 21, 2021 FINAL DIAGNOSIS Mechanical fall without injury acute kidney injury urinary tract infection mild elevation of troponin CONDITION ON DISCHARGE: Stable CODE STATUS: Code Status: Full [facility]: SNF STAY <30 DAYS: Yes POST DISCHARGE ORDERS: ACTIVITY ORDERS: Activity as tolerated DIET AFTER DISCHARGE: Cardiac TREATMENT/EQUIPMENT ORDERS: Physical Therapy For: Evalulation/Treatment Occupational Therapy For: Evaluation/Treatment DISCHARGE MEDICATIONS: Home Meds Active Scripts Cefdinir (CEFDINIR) 300 Mg Capsule, 1 CAP PO BID for uti for 7 Days, #14 CAP Prov:HENRI ALVAREZ MD 12/21/21 Reported Medications Potassium Chloride (KLOR-CON 10) 10 Meq Tablet.er, 10 MEQ PO DAILY, TAB 12/17/21 Insulin Aspart (NOVOLOG FLEXPEN) 100 Unit/1 Ml Insuln.pen, 8 UNIT SQ TIDWMEALS, SYR 12/17/21 Polyethylene Glycol 3350 (MIRALAX) 17 Gm Powd.pack, 1 PKT PO DAILY, PKT 12/17/21 Metformin Hcl (METFORMIN HCL) 1,000 Mg Tablet, 1000 MG PO BIDWMEALS, TAB 12/17/21 Duloxetine Hcl (DULOXETINE HCL) 30 Mg Capsule.dr, 90 MG PO DAILY, CAP 12/17/21 Divalproex Sodium (DIVALPROEX SODIUM) 500 Mg Tablet.dr, 250 MG PO BID, TAB 12/17/21 Cholecalciferol (Vitamin D3) (Vitamin D3 ) 125 Mcg Capsule, 125 MCG PO WEEKLY for SUPPLEMENT, CAP 5,000 UNITS = 125 MCG 12/17/21 Hydralazine Hcl (HYDRALAZINE HCL) 25 Mg Tablet, 1 TAB PO TID for htn, #90 TAB 5 Refills 12/17/21 Acetaminophen (ACETAMINOPHEN) 325 Mg Tablet, 1 TAB PO PRN Q4HRS PRN for pain or fever for 30 Days, #30 TAB 0 Refills 12/17/21 Apixaban (ELIQUIS) 5 Mg Tablet, 5 MG PO BID for afib, TAB 12/17/21 Metoprolol Succinate (TOPROL XL) 25 Mg Tab.er.24h, 2 TAB PO DAILY for afib for 30 Days, #60 TAB 0 Refills 12/17/21 Nitroglycerin (Nitrostat) 0.4 Mg Tab.subl, 0.4 MG SL PRN Q5MIN PRN for CHEST PAIN, TAB 12/17/21 Amlodipine Besylate (AMLODIPINE BESYLATE) 5 Mg Tablet, 5 MG PO BID for htn, TAB 12/17/21 Baclofen (BACLOFEN) 10 Mg Tablet, 1 TAB PO TID for muscle spasms, #90 TAB 2 Refills 12/17/21 Lorazepam (ATIVAN) 0.5 Mg Tablet, 0.5 MG PO HS for anxiety, TAB 12/17/21 Trazodone Hcl (TRAZODONE HCL) 50 Mg Tablet, 1.5 TAB PO QHS for insomnia, #30 TAB 1 Refill 12/17/21 Hydrocodone Bit/Acetaminophen (HYDROCODONE-APAP 5-325 ) 1 Tab Tablet, 1 TAB PO PRN Q4-6HRS PRN for PAIN, TAB 0 Refills 12/17/21 Pregabalin (LYRICA) 75 Mg Capsule, 1 CAP PO BID for neuropathy, #60 CAP 1 Refill 12/17/21 Insulin Glargine,Hum.rec.anlog (LANTUS) 100 Unit/1 Ml Vial, 20 UNIT SQ HS for diabetes, EACH 12/17/21 Cyanocobalamin (Vitamin B-12) (B-12) 1,000 Mcg Tablet.er, 1 TAB PO DAILY for supplement for 30 Days, #30 TAB 0 Refills 12/17/21 Nortriptyline Hcl (NORTRIPTYLINE HCL) 25 Mg Capsule, 2 CAP PO QHS for neuropathy, #30 CAP 12/17/21 Sennosides/Docusate Sodium (SENNA PLUS TABLET) 1 Each Tablet, 2 EACH PO DAILY 11/14/16 Propafenone Hcl (RYTHMOL SR) 225 Mg Cap.er.12h, 75 MG PO BID 11/14/16 Memantine Hcl (NAMENDA) 10 Mg Tablet, 1 TAB PO DAILY, #180 TAB 1 Refill 11/14/16 Multivit-Min/Iron Fum/Folic AC (Lqsaj-Kurysep-Qrhyukjf Tablet) 1 Each Tablet, 1 EACH PO DAILY 11/14/16 Loratadine (LORATADINE) 10 Mg Tablet, 1 TAB PO DAILY, #30 TAB 5 Refills 11/14/16 Fluticasone Propionate (Fluticasone Propionate) 15.8 Ml Bladen.susp, 15.8 ML NS DAILY 11/14/16 Donepezil Hcl (ARICEPT) 10 Mg Tablet, 1 TAB PO QHS, #30 TAB 5 Refills 11/14/16 Discontinued Reported Medications Potassium Chloride (Potassium Chloride) 15 Meq Tab.er.prt, 10 MEQ PO DAILY for supplement, TAB.SR 12/17/21 Divalproex Sodium (DIVALPROEX SODIUM ER) 250 Mg Tab.er.24h, 125 MG PO BID for dementia, TAB.SR 12/17/21 Polyethylene Glycol 8000 (POLYETHYLENE GLYCOL) 500 Gm Powder, 500 GM MC PRN DAILY PRN for CONSTIPATION, MISC 12/17/21 Duloxetine HCl (Duloxetine HCl) 40 Mg Capsule.dr, 90 MG PO DAILY for depression, CAP 12/17/21 Ondansetron (ZOFRAN ODT) 4 Mg Tab.rapdis, 1 TAB SL Q4HRS PRN for NAUSEA, #15 TAB 11/14/16 Cyanocobalamin (Vitamin B-12) (Vitamin B-12) 500 Mcg Tab.subl, 500 MCG SL 11/14/16 Trazodone Hcl (TRAZODONE HCL) 50 Mg Tablet, 1 TAB PO QHS PRN for INSOMNIA, #30 TAB 1 Refill 11/14/16 Pectin (THROAT DROPS) 2.8 Mg Lozenge, 2.8 MG MM Q4HRS PRN for PAIN, LOZENGE 11/14/16 Pravastatin Sodium (PRAVASTATIN SODIUM) 40 Mg Tablet, 1 TAB PO QHS, #90 TAB 1 Refill 11/14/16 Potassium Chloride (K-Tab ER) 8 Meq Tablet.er, 10 MEQ PO DAILY 11/14/16 Nortriptyline Hcl (NORTRIPTYLINE HCL) 75 Mg Capsule, 100 MG PO HS, CAP 11/14/16 Diclofenac Sodium (VOLTAREN) 100 Gm Gel..gram., 4 GM TP Q6HRS, #1 EACH 2 Refills 11/14/16 Magnesium Hydroxide (MILK OF MAGNESIA) 2,400 Mg/10 Ml Oral.susp, 2400 MG PO 11/14/16 Metformin HCl (Metformin HCl ER) 500 Mg [id number], 500 MG PO DAILY16 11/14/16 Metformin HCl (Metformin HCl ER) 1,000 Mg [id number], 1000 MG PO DAILY 11/14/16 Pregabalin (LYRICA) 50 Mg Capsule, 1 CAP PO BID, #60 CAP 11/14/16 Insulin Glargine,Hum.rec.anlog (LANTUS SOLOSTAR) 100 Unit/1 Ml Insuln.pen, 10 UNIT SQ QHS, #15 ML 3 Refills 11/14/16 Loperamide HCl (Imodium A-D) 2 Mg Capsule, 2 MG PO 11/14/16 Hydrocodone Bit/Acetaminophen (HYDROCODONE-APAP 5-325 ) 1 Each Tablet, 1 TAB PO PRN Q6HRS PRN for PAIN, TAB 0 Refills 11/14/16 Duloxetine Hcl (CYMBALTA) 60 Mg Capsule.dr, 1 CAP PO DAILY, #90 CAP 3 Refills 11/14/16 Docusate Sodium (COLACE) 100 Mg Capsule, 1 CAP PO BID, #30 CAP 11/14/16 Lorazepam (ATIVAN) 0.5 Mg Tablet, 0.5 MG PO BID PRN for ANXIETY / AGITATION, TAB 11/14/16 Aspirin (ASPIR 81) 81 Mg Tablet.dr, 1 TAB PO DAILY, #30 TAB 5 Refills 11/14/16 Acetic Acid/Hydrocortisone (ACETASOL HC EAR DROPS) 10 Ml Drops, 10 ML OT PRN for prn 11/14/16 HENRI ALVAREZ MD Dec 21, 2021 09:49
[2021-12-21 11:00] VITALS: BP 133/92
[2021-12-21] MEDS: ANTI-COAG MONITOR BY PHARMACY. MC PRN (11:19)
--- NOTE | 2021-12-21 14:50 | NUR ---
PATIENTS' PACEMAKER INTERROGATED AT THIS TIME, Over 41 Females DRIVERS HERE X2 TO TRANSPORT PATIENT TO [facility],SALINE LOCK REMOVED PER PACKAGING TECHNICIAN, BANDAGE APPLIED.
--- NOTE | 2021-12-21 15:15 | NUR ---
PATIENT LEAVES THE UNIT PER STRETCHER, EMOTIONAL SUPPORT GIVEN, FOLLOW UP APPOINTMENTS ENCOURAGED, CALL PLACED TO [facility], NO ANSWER AT THIS TIME.
== END 2021-12-21 15:00 | DRG 689 ==
LOC: 5 NORTH 03:34
PROVIDERS: ADMIT Internal Medicine; ATTEND Internal Medicine
PROC: 4B02XSZ Measurement of Cardiac Pacemaker, External Approach (ICD-10-PCS; principal; 2021-12-21)
DX: N39.0 Urinary tract infection, site not specified (principal); N17.0 Acute kidney failure with tubular necrosis; M62.82 Rhabdomyolysis; I25.10 Atherosclerotic heart disease of native coronary artery without angina pectoris; I48.91 Unspecified atrial fibrillation; B96.20 Unspecified Escherichia coli [E. coli] as the cause of diseases classified elsewhere; E11.9 Type 2 diabetes mellitus without complications; E78.5 Hyperlipidemia, unspecified; F03.90 Unspecified dementia, unspecified severity, without behavioral disturbance, psychotic disturbance, mood disturbance, and anxiety; G89.29 Other chronic pain; I10 Essential (primary) hypertension; I70.0 Atherosclerosis of aorta; K59.03 Drug induced constipation; T40.2X5A Adverse effect of other opioids, initial encounter; W18.30XA Fall on same level, unspecified, initial encounter; F32.A Depression, unspecified; F41.9 Anxiety disorder, unspecified; K21.9 Gastro-esophageal reflux disease without esophagitis; I08.1 Rheumatic disorders of both mitral and tricuspid valves; M54.50 Low back pain, unspecified; R79.89 Other specified abnormal findings of blood chemistry; Y92.129 Unspecified place in nursing home as the place of occurrence of the external cause; Z79.01 Long term (current) use of anticoagulants; Z82.49 Family history of ischemic heart disease and other diseases of the circulatory system; Z95.0 Presence of cardiac pacemaker; Y93.89 Activity, other specified; Y99.8 Other external cause status
CPT/HCPCS: 36415; 78306; 80048; 80053; 80061; 82962; 83735; 84484; 85025; 85027; 93306; 94640; 94760; A9503; J1815; J2543; 92610-GN; 97530-GP; 97535-GO; C8929; G0378